=== PATIENT | female | born 1950 | race Caucasian/White ===

== ENCOUNTER → 2019-08-26 09:06 | Outpatient (CLI) | payer MEDICARE, OTHER, SELFPAY ==
--- NOTE | ~2019-08-26 | DEXA_ITS ---
Bone Density Report Name: Marah Steward Age: 68 Sex: Female Ethnicity: White Date of : 1950 Indication: osteopenia; height loss; prior fracture; postmenopausal Referring Provider: Dafne, Savana Garrido Study: Bone densitometry was performed. Exam Date: August 26, 2019 Accession number: [id number] Bone Density: Region BMD T-score Z-score Classification AP Spine (L1-L4) 0.845 -1.8 0.1 Osteopenia Femoral Neck (Left) 0.596 -2.3 -0.6 Osteopenia Total Hip (Left) 0.876 -0.5 0.8 Normal Femoral Neck (Right) 0.627 -2.0 -0.3 Osteopenia Total Hip (Right) 0.823 -1.0 0.4 Normal Total Hip Mean 0.850 -0.8 0.6 Normal World Health Organization criteria for BMD impression classify patients as: Normal (T-score at or above -1.0), Osteopenia (T-score between -1.0 and -2.5), or Osteoporosis (T-score at or below -2.5). 10-year Fracture Risk(1): Major Osteoporotic Fracture 19% Hip Fracture 3.9% Reported Risk Factors: [place] (), Neck BMD=0.596, BMI=23.4, previous fracture (1) FRAX(R) Version 3.08. Fracture probability calculated for an untreated patient. Fracture probability may be lower if the patient has received treatment. Previous Exams: Region Exam Age BMD T-score BMD Change BMD Change Date g/cm2 vs Baseline vs Previous AP Spine(L1-L4) 08/26/2019 68 0.845 -1.8 -0.088* -0.063* 07/31/2009 58 0.908 -1.3 -0.025* -0.025* 06/30/2006 55 0.933 -1.0 Total Hip(Left) 08/26/2019 68 0.876 -0.5 -0.066* 0.005 07/31/2009 58 0.871 -0.6 -0.071* -0.071* 06/30/2006 55 0.942 0.0 Total Hip(Right) 08/26/2019 68 0.823 -1.0 -0.048* -0.028* 07/31/2009 58 0.851 -0.7 -0.019 -0.019 06/30/2006 55 0.870 -0.6 *Denotes significance at 95% confidence level, LSC for AP Spine = 0.022 g/cm2, LSC for Total Hip = 0.027 g/cm2 Clinical Information Provided by Patient: Has had a low trauma fracture Has used the following medications: Vitamin D, Calcium Patient maximum height was 70.5 Menopause Age: 44 Drinks caffeinated beverages Onset of menses at age 13 Number of children 2 Impression: The patient has low bone mass, based on the Left Femoral Neck T-score. The patient has an estimated ten-year risk of hip fracture of 3.9% and an estimated ten-year risk of major fracture of 19%, based on the WHO FRAX algorithm. The patient has risk
== END ==
PROVIDERS: Visit Provider Nurse Practitioner Obstetrics & Gynecology
DX: M85.89 Other specified disorders of bone density and structure, multiple sites (principal)
CPT/HCPCS: 77080

== ENCOUNTER 2020-08-06 12:42 | Outpatient (CLI) | payer MEDICARE, OTHER, SELFPAY ==
--- NOTE | ~2020-08-06 | XR_ITS ---
EXAMINATION: XR lg joint inject/asp w image EXAM DATE: 08/06/2020 14:03 INDICATION: M16.11 - Unilateral primary osteoarthritis, right hip. TECHNIQUE: A time-out was performed to verify the patient's name, date of , and procedure to b e performed. The procedure including the risks, benefits and alternatives were discussed with the pat ient. Risks discussed included bleeding and infection. The patient understood the risks and agreed to proceed. The skin overlying the right hip joint was prepped and draped in usual sterile fashion. A nesthetic was administered with 2 milliliters 1% lidocaine subcutaneously. A 22 G needle was advance d under fluoroscopic guidance into the joint. Total of 2 mL of Omnipaque 240 confirmed intra-articu lar position of the needle. Subsequently, injectate consisting of 5 mL 1% lidocaine, 2 mL Kenalog 10 was instilled. The needle was removed and the entry site was cleaned and dressed. There were no i mmediate complications. The DAP for this procedure was 0.04 Gycm2. The procedure was performed on . FINDINGS: Real-time fluoroscopy demonstrates the needle and contrast in the right hip joint. IMPRESSION: Successful right hip joint injection. Reviewed, dictated and finalized at location B. 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
== END 2020-08-06 12:43 | disposition home or self-care (01) ==
PROVIDERS: PCP Internal Medicine; Visit Provider Orthopaedic Surgery
DX: M16.11 Unilateral primary osteoarthritis, right hip (principal)
CPT/HCPCS: 20610; 77002; J3301; Q9966

== ENCOUNTER 2021-03-18 15:42 | Outpatient (CLI) | payer MEDICARE, OTHER, SELFPAY ==
--- NOTE | ~2021-03-18 | MM_ITS ---
EXAMINATION: MM screening tanisha BI w chandler HISTORY: Screening TECHNIQUE: Craniocaudal and mediolateral oblique 3-D tomosynthesis images were obtained and synthetic 2-D images were generated. CAD analysis was submitted and interpreted. COMPARISON: Comparison to multiple prior studies sequentially, with oldest reviewed study dated 11/19. BREAST PARENCHYMAL COMPOSITION: The breasts are heterogenously dense, which may obscure small masses. FINDINGS: There is no evidence of suspicious mass, calcification, or architectural distortion to sugg est malignancy in either breast. There has been no suspicious interval change. IMPRESSION: 1. No mammographic evidence of malignancy. 2. Recommend routine screening mammography in one year. BI-RADS Category 1: Negative Reviewed, dictated and finalized at location A.
== END 2021-03-18 15:43 | disposition home or self-care (01) ==
LOC: ANHIMG 15:46
PROVIDERS: PCP Internal Medicine; Visit Provider Nurse Practitioner Obstetrics & Gynecology
DX: Z12.31 Encounter for screening mammogram for malignant neoplasm of breast (principal)
CPT/HCPCS: 77063; 77067

== ENCOUNTER 2022-04-20 08:10 | Outpatient (CLI) | payer MEDICARE, OTHER, SELFPAY ==
--- NOTE | ~2022-04-20 | MR_ITS ---
EXAMINATION: 1. MR brain/brain stem wo/w con 2. MR orbits face neck wo/w con DATE: 04/20/2022 09:34 INDICATION: Other complicated headache syndrome. Right-sided tinnitus. TECHNIQUE: Magnetic resonance imaging (MRI) of the brain and brainstem and orbits was performed witho ut and with 14 mL MultiHance intravenous contrast. COMPARISON: None. FINDINGS: MRI BRAIN: There is no intracranial hemorrhage, acute infarction, or abnormal intracranial mass lesio n. The ventricles are normal in size. The internal auditory canals and inner and middle ears are norm al. The mastoid air cells are normal. The paranasal sinuses are clear. MRI ORBITS: The optic nerves, optic chiasm, and extraocular muscles are normal. There is no abnormal mass. There are likely changes of ocular lens replacement surgeries. IMPRESSION: 1. Normal brain. 2. Normal orbits. Reviewed, dictated and finalized at location B. IMPRESSION: 1. Normal brain. 2. Normal orbits.
== END 2022-04-20 08:11 | disposition home or self-care (01) ==
PROVIDERS: PCP Internal Medicine
DX: G44.59 Other complicated headache syndrome (principal)
CPT/HCPCS: 70543; 70553; A9577

== ENCOUNTER 2022-08-11 14:54 | Outpatient (CLI) | payer MEDICARE, OTHER, SELFPAY ==
--- NOTE | ~2022-08-11 | XR_ITS ---
EXAMINATION: XR abdomen/kub 1V INDICATION: Diarrhea, unspecified TECHNIQUE: Supine views of the abdomen were obtained on 2 radiographs. COMPARISON: None FINDINGS: A moderate volume of colonic stool is present. No dilated loops of bowel are evident. The b owel gas pattern is normal. There is mild lumbar spondylosis. Osteoarthritis is noted in the hips. IMPRESSION: 1. Moderate volume of colonic stool. Reviewed, dictated and finalized at location L. 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
== END 2022-08-11 14:55 | disposition home or self-care (01) ==
PROVIDERS: PCP Internal Medicine; Visit Provider Nurse Practitioner Family
DX: R19.7 Diarrhea, unspecified (principal); M54.50 Low back pain, unspecified
CPT/HCPCS: 74018

== ENCOUNTER 2022-10-14 08:35 | Emergency (ER) | payer MEDICARE, OTHER, SELFPAY ==
--- NOTE | ~2022-10-14 | XR_ITS ---
Left Shoulder Technique: AP and scapular Y views were obtained. Clinical History: Pain Findings: No fracture or dislocation is seen. Osseous alignment is anatomic. The glenohumeral and acr omioclavicular joint spaces are preserved. Soft tissues are unremarkable. Impression: Unremarkable left shoulder radiographs. Reviewed, dictated and finalized at [facility]. Impression: Unremarkable left shoulder radiographs.
--- NOTE | ~2022-10-14 | XR_ITS ---
Clinical Indication: Chest pain PA and lateral views of the chest: Comparison: None Findings: The lungs are clear, without evidence of focal consolidation or pleural effusion. Cardiome diastinal silhouette is within normal limits. Bones and soft tissues are unremarkable. Impression: Normal chest. Reviewed, dictated and finalized at location . Impression: Normal chest.
--- NOTE | 2022-10-14 08:37 | ECG_ITS ---
Measurements Intervals [place] Rate: 83 P: 79 DC: 167 QRS: 81 QRSD: 102 T: 62 QT: 387 QTc: 455 Interpretive Statements SINUS RHYTHM BASELINE ARTIFACT ANTEROSEPTAL MYOCARDIAL INFARCTION , PROBABLY OLD ABNORMAL ECG NO PREVIOUS ECG AVAILABLE FOR COMPARISON Electronically Signed On 10-14-2022 16:46:04 CDT by Joshua Rome M.D.
[2022-10-14 08:45] VITALS: BP 134/64; PULSE 72; RESP 12; TEMP 36.5; O2SAT 98
[2022-10-14] MEDS: ASPIRIN 81 MG CHEWABLE TABLET 324 MG PO (09:03)
[2022-10-14 09:04] LABS: Basophils Percent Auto 0.7 % (0.2-1.2); Eosinophils Absolute Auto 0.2 K/mm3 (0-0.3); Eosinophils Percent Auto 3.3 % (0-4.4); Hematocrit 42.3 % (37.0-47.0); Hemoglobin 13.8 g/dL (12.0-15.0); Immature Granulocyte Absolute 0.01 K/mm3 (0.00-0.031); Immature Granulocyte Percent A 0.2 % (0-0.5); Lymphocytes Absolute Auto 2.29 K/mm3 (0.9-3.2); Lymphocytes Percent Auto 40.3 % (18.3-44.2); Mean Corpuscular HGB Conc 32.6 g/dl (32-36); Mean Corpuscular Hemoglobin 29.2 pg (26-34); Mean Corpuscular Volume 89.6 fl (80-100); Mean Platelet Volume 9.7 fl (7.4-10.4); Monocytes Absolute Auto 0.6 K/mm3 (0.1-0.6); Monocytes Percent Auto 9.7 % (2.6-8.5); Neutrophils Absolute Auto 2.6 K/mm3 (1.3-6.7); Neutrophils Percent Auto 45.8 % (45.5-73.1); Platelet Count Result 307 k/mm3 (150-375); Red Blood Count 4.72 M/mm3 (4.2-5.4); Red Cell Distribution Width 13.8 % (11.5-14.5); White Blood Count 5.7 K/mm3 (4.5-10.0)
[2022-10-14] MEDS: ONDANSETRON INJ 4 MG/2 ML VIAL IV PUSH (09:09)
[2022-10-14] MEDS: HYDROmorphone HCL INJ (*CRX) 1 MG/ML SYR 0.5 MG IV PUSH (09:10)
[2022-10-14 09:12] VITALS: BP 112/69; PULSE 78; RESP 14; O2SAT 99
[2022-10-14 09:17] LABS: Alanine Aminotransferase 20 U/L (6-35); Albumin Level 4.3 g/dL (3.5-5.1); Alkaline Phosphatase 70 U/L (38-126); Anion Gap 8 mmol/L (8-16); Aspartate Amino Transferase 29 U/L (14-36); Bilirubin,Total 0.6 mg/dL (0.2-1.3); Blood Urea Nitrogen 15 mg/dL (7-17); Carbon Dioxide 25 mmol/L (22-30); Chloride 107 mmol/L (98-107); Estimated CRCL calculation 79 ml/min; Estimated Glomerular Filt Rate > 60; Glucose 127 mg/dL (65-110); Lipase 96 U/L (23-300); Potassium 4.2 mmol/L (3.4-5.0); Sodium 140 mmol/L (137-145)
[2022-10-14 09:20] LABS: Prothrombin Time 12.7 Seconds (11.1-14.7)
[2022-10-14 09:22] LABS: Partial Thromboplastin Time 27.6 SECONDS (22.3-36.8)
--- NOTE | 2022-10-14 09:24 | ED.UPPEXIN ---
HPI - Extremity Injury (Upper) General Chief Complaint: Extremity Injury, Upper Stated Complaint: left shoulder pain Time Seen by Provider: 10/14/22 09:03 Source: patient and family Mode of arrival: ambulatory Limitations: no limitations History of Present Illness HPI narrative: 72 years old white female came with severe sharp pain left shoulder blade with shooting pain down to the left upper extremity. Worse with any movement, better if she does not move. Patient reports that the pain started getting gradually worse over the last 3 to 4 days, patient been working at the [employer] over the last 7 days which is unusual. 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 She denies any fever, chills, nausea, vomiting, shortness of breath, chest pain. Patient had similar symptoms in the past and been to chiropractor with some improvement. History of peptic ulcer disease, does not smoke or drink, does not take any medicine for diabetes, hypertension, hyperlipidemia. Does not smoke or drink. Related Data Home Medications Medication Instructions Recorded Confirmed multivitamin (Multiple Vitamins 1 tablet PO DAILY 08/04/20 10/11/22 tablet) aspirin 81 mg tablet,delayed 81 mg PO DAILY 03/02/21 10/11/22 release (Adult Low Dose Aspirin) meclizine 25 mg tablet 25 mg PO BID PRN 06/02/22 10/11/22 Allergies Allergy/AdvReac Type Severity Reaction Status Date / Time No Known Allergies Allergy Unknown Unknown Uncoded 10/14/22 09:00 Review of Systems Review of Systems: All systems reviewed & are unremarkable except as noted in HPI and below PMFSH Past Medical History Medical History BMI 23.0-23.9, adult GERD (gastroesophageal reflux disease) Osteoarthritis of right hip Osteopenia Ulcer Surgical History Surgical History H/O tubal ligation H/O wrist surgery broken wrist, surgery august 2012, Dr. Wasserman Hx of tonsillectomy Family History Family History Mother Breast cancer Sibling Breast cancer Other Cancer Diabetes mellitus Heart disease Social History Social History Smoking status: Never smoker Alcohol intake: never Substance use: never Substance use type: does not use Lack of Transportation: No Lack of Food: Never True Current Housing: I Have Housing Concerned About Future Housing: No Difficulty Paying Gas/Electric Bills: No Difficulty Paying for Meds: No Currently Unemployed: No Education: Associate Degree Difficulty w/ Childcare or Family Care: No Living arrangements: with family Occupation/Education: retired Additional occupation/education comments: her at [employer] Gender identity (if verbalized by the patient): Female Exam Narrative: General appearance: Well-developed, well-nourished Skin: Normal color Head: Normocephalic, nontraumatic Eyes: Clear conjunctiva ENT: Oropharynx normal, ears normal, nose normal Neck: Supple, nontender Chest and respiratory: Airway patent, no respiratory distress, no accessory muscle use Heart: Regular rate/rhythm Abdomen: Soft, nontender, no organomegaly, quiet bowel sounds Vascular: Normal peripheral pulses, normal capillary refill. Musculoskeletal: Severe diffuse tenderness left upper back, supraclavicular and left upper chest and shoulder with light palpation. 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
[2022-10-14 09:29] LABS: Troponin I < 0.012 ng/mL (0.000-0.034)
[2022-10-14 10:03] VITALS: BP 112/69; PULSE 61; RESP 16; O2SAT 97
[2022-10-14] MEDS: IBUPROFEN 600 MG TABLET PO (10:03)
[2022-10-14] MEDS: diazePAM (*CRX) 5 MG TABLET PO (10:03)
[2022-10-14 10:32] VITALS: BP 136/84; PULSE 68; RESP 16; O2SAT 98
== END 2022-10-14 10:33 | disposition home or self-care (01) ==
PROVIDERS: Emergency Provider Emergency Medicine; PCP Internal Medicine
DX: S46.002A Unspecified injury of muscle(s) and tendon(s) of the rotator cuff of left shoulder, initial encounter (principal); K21.9 Gastro-esophageal reflux disease without esophagitis; M16.11 Unilateral primary osteoarthritis, right hip; M85.80 Other specified disorders of bone density and structure, unspecified site; Z87.11 Personal history of peptic ulcer disease; Z79.82 Long term (current) use of aspirin; R94.31 Abnormal electrocardiogram [ECG] [EKG]; R07.9 Chest pain, unspecified; X50.9XXA Other and unspecified overexertion or strenuous movements or postures, initial encounter
CPT/HCPCS: 36415; 71046; 73030; 80053; 83690; 84484; 85025; 85610; 85730; 93005; 96374; 96375; 99284; A9270; J1170; J2405

== ENCOUNTER 2022-11-05 07:30 | Outpatient (CLI) | payer MEDICARE, OTHER, SELFPAY ==
--- NOTE | ~2022-11-05 | MR_ITS ---
EXAMINATION: MR cervical spine wo con DATE: 11/05/2022 08:09 INDICATION: C7 radiculopathy. Neck pain. TECHNIQUE: Magnetic resonance imaging (MRI) of the cervical spine was performed without intravenous c ontrast. Sequences included sagittal T2-weighted FSE, sagittal T2-weighted FS FSE, sagittal T1-weight ed FSE, axial MERGE, and axial T2-weighted FSE. COMPARISON: Cervical spine MRI 03/23/2009, radiographs 10/18/2022 FINDINGS: There is kyphosis of cervical spine. Vertebral body heights are normal. There is mildly dec reased disc height at C3-C4, severely decreased disc height at C4-C5, moderately decreased disc heigh t at C5-C6, and severely decreased disc height at C6-7 C7 with endplate remodeling. The spinal cord s ignal intensity is normal. The following disc levels are specifically discussed: C2-C3: The disc does not extend beyond the endplate margin. There is no uncovertebral joint osteoarth ritis. There is mild right and moderate left facet joint osteoarthritis. There is no neural foraminal stenosis. There is no central canal stenosis. C3-C4: The disc is bulging. There is mild right and moderate left uncovertebral joint osteoarthritis. There is moderate bilateral facet joint osteoarthritis. There is mild left neural foraminal stenosis . There is mild central canal stenosis. C4-C5: The disc is bulging. There is severe bilateral uncovertebral joint osteoarthritis. There is mi ld bilateral facet joint osteoarthritis. There is mild bilateral neural foraminal stenosis. There is mild central canal stenosis with ventral indentation of the spinal cord. C5-C6: The disc is bulging. There is moderate bilateral uncovertebral joint osteoarthritis. There is mild bilateral facet joint osteoarthritis. There is mild bilateral neural foraminal stenosis. There i s mild central canal stenosis. C6-C7: The disc is bulging. There is severe bilateral uncovertebral joint osteoarthritis. There is mo derate right and mild left facet joint osteoarthritis. There is mild bilateral neural foraminal steno sis. There is mild central canal stenosis. C7-T1: The disc is bulging. There is mild right and moderate left uncovertebral joint osteoarthritis. There is severe bilateral facet joint osteoarthritis. There is mild right and moderate left neural f oraminal stenosis. There is no central canal stenosis. IMPRESSION: 1. Severe cervical spondylosis, worsened from 03/23/2009. Reviewed, dictated and finalized at location A.
== END 2022-11-05 07:31 | disposition home or self-care (01) ==
LOC: ANHIMG 07:33
PROVIDERS: PCP Internal Medicine; Visit Provider Internal Medicine
DX: M47.22 Other spondylosis with radiculopathy, cervical region (principal)
CPT/HCPCS: 72141

== ENCOUNTER 2022-12-19 09:00 | Outpatient (RCR) | payer MEDICARE, OTHER, SELFPAY ==
--- NOTE | 2022-10-20 13:52 | PTOPEVAL1 ---
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; at home, is doing light tasks only; have had PT For her neck in the past--ultrasound, electrical stim have helped; daughter has a home stim unit and wants to know if she can use it--educated pt on pad placement Reported Pain Level Pain Score Self Report Additional Pain Score Comments pain range of 3-10/10 in neck--sharp, stabbing in shoulder blade,shoots to neck and down arm: L to posterior elbow; R arm without radicular pain; increase pain with moving and activity; decrease pain: take pain meds, CBD oil, rest, ice; with sleeping awaken due to pain 12x/night; tolerates light home tasks about 5-15 minutes, then have to rest; Assessment PT Clinical Summary Marah has the diagnosis of cervical radicular pain into L arm to elbow. She reports a chronic history of neck pain and went to ER due to L shoulder pain. 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 Self assessment functional score with Neck Disability Index score of 54% limitation. The xray reports moderate foraminal narrowing L > R mid to lower cervical spine. With the evaluation, she has decreased cervical rotation ROM to the L with pain increase, extension also painful; Active shoulder ROM is WNL and does not increase pain. There are muscle spasms throughout [id number] complex bilateral. Skilled PT services are indicated for modalities to decrease pain and spasms, therapeutic exercises to increase cervical ROM and education for home exercises. Plan of Care Interventions Hot Pack/Cold Pack,Manual Therapy,Neuro Re- ed
--- NOTE | 2022-11-24 09:53 | PTOPPROG ---
Assessment and note entered by May De La Vega, PT Evaluation Information Assessment Status Progress Diagnosis cervicalgia, radiculopathy Onset Jun 2022 Subjective Information Marah reports: was feeling better, did some painting yesterday and more pain today; have returned to working as [employer] for 7 days in a row and did OK; have been doing the home exercises and watching posture, position; feel like more therapy would be helpful to get better, since set back with just little more activity; pain range of 0-4/10; neck tight and posterior shoulder blade pain, but still have had the tingling in L arm to hand ALL the time, severity varies depend upon activity and motion; have slept through the night without awakeing, but due to increased activity, last night woke up 3x/ night; driving is OK; reported home activity about 1 hour before stop rest; decrease pain: ibuprofen PRN, have gone days without taking any; Assessment PT Clinical Summary Marah has received 11 PT sessions. Compared to the initial evaluation: pain rating has improved from 3-10/10 to 0-4/10; neck pain is less, but continues to have tingling/numbness into L fingers constantly--with increase in severity with activity; Self assessment Neck Index score improved from 54% to 38% limitation in activity; sleeping tolerance and reported activity tolerances have improved; cervical rotation L & extension has increased, but still painful; education for HEP, posture/position and pain control have been provided. She has a pain management consult next week. The goals were partially met. Continue PT treatment, to further decrease pain and increase strength, with progression of HEP. Plan of Care Interventions Electrical Stimulation,Hot Pack/Cold Pack,Manual Therapy,Neuro Re-education,Patient/Caregiver Education,Therapeutic Activities,Therapeutic Exercise,Ultrasound,Other Other Interventions taping, [facility] PT Services Indicated Yes Treatment Frequency and 2x/wk for 3 weeks Duration These treatments will
--- NOTE | 2022-12-19 09:34 | PTOPDC ---
Assessment and note entered by May De La Vega, PT Evaluation Information Assessment Status Discharge Diagnosis cervicalgia, radiculopathy Onset Jun 2022 Subjective Information Marah reports: doing better; back to doing everything, but painting and heavier tasks with redoing her daughter's home; Reported Pain Level Pain Score Self Report Additional Pain Score Comments pain range of 0-3/10 in the past week: numb and tingling feeling in L elbow- forearm and into 4 & 5th fingers; no pain in neck; increase pain when wake up in the AM--get up out of bed and stand, put pressure on her spine; decrease pain with stretching and heat; standing, walking and 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 Compared to the last reeval: pain rating about the same, continues to have tingling and radicular s/ s into her L hand, but less and she can move her arm to decrease it; Self assessment improved from 38% to 6% limitation in activity level; sleeping improved--not awakening due to pain, but issues with lying on her L side; no longer has pain with active cervical extension; strength of L shoulder flexion has improved, but abduction is about the same and causes her some pain increase with weighted abduction motion; Education completed for HEP and posture and pain management. The goals were partially met. Discharge PT; she is to continue with her home exercises and pain management control techniques, with activity moderation. Plan of Care PT Services Indicated No
== END 2022-12-19 12:57 | disposition home or self-care (01) ==
LOC: ANHPT 09:00
PROVIDERS: PCP Internal Medicine; Visit Provider Orthopaedic Surgery
DX: M47.812 Spondylosis without myelopathy or radiculopathy, cervical region (principal); M54.12 Radiculopathy, cervical region
CPT/HCPCS: 97014; 97035; 97110; 97140; 97161; 97530; G0283

== ENCOUNTER 2023-04-07 14:44 | Outpatient (CLI) | payer MEDICARE, SELFPAY ==
--- NOTE | ~2023-04-07 | XR_ITS ---
XR_CERV2-3V_CR DATE: 04/07/2023 15:06 INDICATION: Left sided neck pain TECHNIQUE: AP, open-mouth, odontoid and lateral views COMPARISON: 10/18/2022 cervical spine FINDINGS: Mild reversal cervical curvature. C1 and C2 are normally aligned and the odontoid process is intact. C2-3 interspace is well preserved. There is moderate loss of interspace height at C3-4. There is mode rately severe degenerative disc disease at C4-5, C5-6 and C6-7. Uncovertebral joint spurring is noted, apparently involving particularly the right C4-5 and the bilat eral C5 and C6 uncovertebral joints particularly. No fracture or dislocation or locked facet or prevertebral soft tissue swelling. IMPRESSION: Reversal cervical curvature Cervical spondylosis Little interval change since 10/18/2022 Reviewed, dictated and finalized at Location A. Reviewed, dictated and finalized at location B.
== END 2023-04-07 14:45 | disposition home or self-care (01) ==
LOC: ANHIMG 14:52
PROVIDERS: PCP Internal Medicine; Visit Provider Internal Medicine
DX: M54.2 Cervicalgia (principal); M53.82 Other specified dorsopathies, cervical region; M43.02 Spondylolysis, cervical region
CPT/HCPCS: 72040

== ENCOUNTER 2023-04-13 08:17 | Outpatient (CLI) | payer MEDICARE, SELFPAY ==
--- NOTE | ~2023-04-13 | MM_ITS ---
EXAMINATION: MM screening tanisha BI w chandler HISTORY: Screening mammogram, family history of breast cancer in her mother and sister. TECHNIQUE: Craniocaudal and mediolateral oblique 3-D tomosynthesis images were obtained and synthetic 2-D images were generated. CAD analysis was submitted and interpreted. COMPARISON: 03/18/2021, 04/30/2019 BREAST PARENCHYMAL COMPOSITION:The breasts are heterogeneously dense, which may obscure small masses. FINDINGS: No suspicious mass, calcification, or architectural distortion are identified in either umair ast to suggest malignancy. There has been no suspicious interval change. IMPRESSION: No mammographic evidence of malignancy. Recommend routine screening mammography in one year. BI-RADS Category 1: Negative Reviewed, dictated and finalized at location .
== END 2023-04-13 08:18 | disposition home or self-care (01) ==
PROVIDERS: PCP Internal Medicine; Visit Provider Obstetrics & Gynecology
DX: Z12.31 Encounter for screening mammogram for malignant neoplasm of breast (principal)
CPT/HCPCS: 77063; 77067

== ENCOUNTER 2023-07-01 13:38 | Outpatient (CLI) | payer MEDICARE, SELFPAY ==
--- NOTE | ~2023-07-01 | MR_ITS ---
EXAMINATION: MR cervical spine wo con DATE: 07/01/2023 14:14 INDICATION: Cervical radicular pain. TECHNIQUE: Magnetic resonance imaging (MRI) of the cervical spine was performed without intravenous c ontrast. COMPARISON: Cervical spine MRI 11/05/2022, radiographs 04/07/2023 FINDINGS: There is kyphosis of cervical spine. Vertebral body heights are normal. There is mildly dec reased disc height at C3-C4, severely decreased disc height at C4-C5, moderately decreased disc heigh t at C5-C6, and severely decreased disc height at C6-C7. The spinal cord signal intensity is normal. The following disc levels are specifically discussed: C2-C3: The disc does not extend beyond the endplate margin. There is no uncovertebral joint osteoarth ritis. There is severe bilateral facet joint osteoarthritis. There is mild left neural foraminal sten osis. There is no central canal stenosis. C3-C4: The disc does not extend beyond the endplate margin. There is mild right and moderate left unc overtebral joint osteoarthritis. There is moderate bilateral facet joint osteoarthritis. There is mil d left neural foraminal stenosis. There is no central canal stenosis. C4-C5: The disc is bulging. There is severe bilateral uncovertebral joint osteoarthritis. There is no facet joint osteoarthritis. There is mild bilateral neural foraminal stenosis. There is mild central canal stenosis. C5-C6: The disc is bulging. There is severe bilateral uncovertebral joint osteoarthritis. There is mi ld bilateral facet joint osteoarthritis. There is mild bilateral neural foraminal stenosis. There is mild central canal stenosis. C6-C7: The disc is bulging. There is severe bilateral uncovertebral joint osteoarthritis. There is mi ld bilateral facet joint osteoarthritis. There is mild bilateral neural foraminal stenosis. There is mild central canal stenosis. C7-T1: There is a central protrusion. There is mild right and moderate left uncovertebral joint osteo arthritis. There is severe bilateral facet joint osteoarthritis. There is moderate bilateral neural f oraminal stenosis. There is no central canal stenosis. IMPRESSION: 1. Severe cervical spondylosis. Reviewed, dictated and finalized at location A. 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
== END 2023-07-01 13:39 | disposition home or self-care (01) ==
PROVIDERS: PCP Internal Medicine; Visit Provider Pain Medicine Pain Medicine
DX: M47.22 Other spondylosis with radiculopathy, cervical region (principal)
CPT/HCPCS: 72141

== ENCOUNTER → 2023-08-07 08:39 | Outpatient (CLI) | payer MEDICARE, SELFPAY ==
--- NOTE | ~2023-08-07 | DEXA_ITS ---
Bone Density Report Name: FERNANDO LERMA Age: 72 Sex: Female Ethnicity: White Date of : 1950 Indication: osteopenia; parental hip fracture; height loss; prior fracture; postmenopausal Referring Provider: Lilliana Alston Study: Bone densitometry was performed. Exam Date: August 07, 2023 Accession number: [id number] Bone Density: Region BMD T-score Z-score Classification AP Spine (L1-L4) 0.817 -2.1 0.1 Osteopenia Femoral Neck (Left) 0.608 -2.2 -0.3 Osteopenia Total Hip (Left) 0.843 -0.8 0.8 Normal Femoral Neck (Right) 0.600 -2.2 -0.3 Osteopenia Total Hip (Right) 0.798 -1.2 0.4 Osteopenia Total Hip Mean 0.821 -1.0 0.6 Normal World Health Organization criteria for BMD impression classify patients as: Normal (T-score at or above -1.0), Osteopenia (T-score between -1.0 and -2.5), or Osteoporosis (T-score at or below -2.5). 10-year Fracture Risk(1): Major Osteoporotic Fracture 32% Hip Fracture 13% Reported Risk Factors: [place] (), Neck BMD=0.600, BMI=23.2, previous fracture, parental fracture (1) FRAX(R) Version 3.08. Fracture probability calculated for an untreated patient. Fracture probability may be lower if the patient has received treatment. Previous Exams: Region Exam Age BMD T-score BMD Change BMD Change Date g/cm2 vs Baseline vs Previous AP Spine(L1-L4) 08/07/2023 72 0.817 -2.1 -0.116* -0.029* 08/26/2019 68 0.845 -1.8 -0.088* -0.063* 07/31/2009 58 0.908 -1.3 -0.025* -0.025* 06/30/2006 55 0.933 -1.0 Total Hip(Left) 08/07/2023 72 0.843 -0.8 -0.099* -0.034* 08/26/2019 68 0.876 -0.5 -0.066* 0.005 07/31/2009 58 0.871 -0.6 -0.071* -0.071* 06/30/2006 55 0.942 0.0 Total Hip(Right) 08/07/2023 72 0.798 -1.2 -0.073* -0.025 08/26/2019 68 0.823 -1.0 -0.048* -0.028* 07/31/2009 58 0.851 -0.7 -0.019 -0.019 06/30/2006 55 0.870 -0.6 *Denotes significance at 95% confidence level, LSC for AP Spine = 0.022 g/cm2, LSC for Total Hip = 0.027 g/cm2 Clinical Information Provided by Patient: Has had a low trauma fracture Parent has had a hip fracture Has used the following medications: Vitamin D, Calcium Patient maximum height was 70.5 Menopause Age: 44 Does not regularly consume dairy products Drinks caffeinated beverages Onset of menses at age 13 Number of children 2
== END ==
PROVIDERS: PCP Internal Medicine; Visit Provider Obstetrics & Gynecology
DX: N95.1 Menopausal and female climacteric states (principal); M85.88 Other specified disorders of bone density and structure, other site; M85.852 Other specified disorders of bone density and structure, left thigh; M85.851 Other specified disorders of bone density and structure, right thigh
CPT/HCPCS: 77080

== ENCOUNTER 2024-05-01 11:16 | Outpatient (CLI) | payer MEDICARE, SELFPAY ==
--- NOTE | ~2024-05-01 | US_ITS ---
EXAMINATION: US venous doppler [facility] DATE: 05/01/2024 12:01 INDICATION: Left calf pain TECHNIQUE: Grayscale ultrasound images without and with compression and Doppler ultrasound images of the left lower extremity veins were obtained. COMPARISON: None. FINDINGS: The visualized portions of left common femoral vein, profunda (deep) femoral vein, femoral vein, popl iteal vein, peroneal veins, posterior tibial veins, gastrocnemius vein and greater saphenous vein out flow are patent. IMPRESSION: 1. No deep venous thrombosis in the left lower limb. Reviewed, dictated and finalized at location A.
== END 2024-05-01 11:17 | disposition home or self-care (01) ==
PROVIDERS: PCP Internal Medicine; Visit Provider Internal Medicine
DX: M79.662 Pain in left lower leg (principal)
CPT/HCPCS: 93971

== ENCOUNTER 2024-05-27 08:46 | Outpatient (CLI) | payer MEDICARE, SELFPAY ==
--- NOTE | 2024-05-27 10:06 | ECG_ITS ---
Test Date: 2024-05-27 10:12:41 Measurements Intervals [place] Rate: 52 P: 33 [place]: 149 QRS: 43 QRSD: 102 T: 47 QT: 450 QTc: 421 Interpretive Statements SINUS BRADYCARDIA CANNOT R/O SEPTAL INFARCT, AGE INDETERMINATE BASELINE ARTIFACT- I, II, III, AVR, AVL, AVF ABNORMAL ECG No previous ECG available for comparison Electronically Signed On 05-27-2024 10:43:17 [employer] by Maciej Morales D.O.
[2024-05-27 10:26] LABS: Basophils Absolute Auto 0.1 K/mm3 (0.0-0.1); Eosinophils Absolute Auto 0.1 K/mm3 (0-0.3); Eosinophils Percent Auto 2.3 % (0-4.4); Hematocrit 39.9 % (37.0-47.0); Hemoglobin 13.2 g/dL (12.0-15.0); Immature Granulocyte Absolute 0.01 K/mm3 (0.00-0.031); Immature Granulocyte Percent A 0.2 % (0-0.5); Lymphocytes Absolute Auto 1.91 K/mm3 (0.9-3.2); Lymphocytes Percent Auto 37.2 % (18.3-44.2); Mean Corpuscular HGB Conc 33.1 g/dl (32-36); Mean Corpuscular Hemoglobin 29.8 pg (26-34); Mean Corpuscular Volume 90.1 fl (80-100); Mean Platelet Volume 9.2 fl (7.4-10.4); Monocytes Absolute Auto 0.7 K/mm3 (0.1-0.6); Monocytes Percent Auto 13.6 % (2.6-8.5); Neutrophils Absolute Auto 2.4 K/mm3 (1.3-6.7); Neutrophils Percent Auto 45.7 % (45.5-73.1); Platelet Count Result 281 k/mm3 (150-375); Red Blood Count 4.43 M/mm3 (4.2-5.4); Red Cell Distribution Width 13.4 % (11.5-14.5); White Blood Count 5.1 K/mm3 (4.5-10.0)
[2024-05-27 10:36] LABS: Prothrombin Time 13.3 Seconds (11.1-14.7)
[2024-05-27 10:37] LABS: Alanine Aminotransferase 15 U/L (6-35); Albumin Level 4.2 g/dL (3.5-5.1); Alkaline Phosphatase 61 U/L (38-126); Anion Gap 3 mmol/L (4-12); Aspartate Amino Transferase 28 U/L (14-36); Bilirubin,Total 0.5 mg/dL (0.2-1.3); Blood Urea Nitrogen 10 mg/dL (7-17); Calcium 9.1 mg/dL (8.4-10.2); Carbon Dioxide 30 mmol/L (22-30); Chloride 103 mmol/L (98-107); Estimated Glomerular Filt Rate > 60; Glucose 88 mg/dL (65-110); Partial Thromboplastin Time 27.4 Seconds (22.3-36.8); Potassium 4.6 mmol/L (3.4-5.0); Sodium 136 mmol/L (137-145)
== END 2024-05-27 08:47 | disposition home or self-care (01) ==
PROVIDERS: PCP Internal Medicine; Visit Provider Urology
DX: Z01.818 Encounter for other preprocedural examination (principal); R00.1 Bradycardia, unspecified; R94.31 Abnormal electrocardiogram [ECG] [EKG]
CPT/HCPCS: 36415; 80053; 85025; 85610; 85730; 86850; 86900; 86901; 93005

== ENCOUNTER 2024-06-03 00:06 | Day surgery (SDC) | payer MEDICARE, SELFPAY ==
--- NOTE | 2024-05-27 08:51 | PC.NURSE ---
Report to the Outpatient Waiting Room, entrance under the green pavilion located off [facility], at time 6 AM on date _06/03/24 . Planned Procedure Time: __7:30 AM .? Time changes happen often and if your time is changed the preop area will call you the afternoon before. - You and your visitor will be asked to self-screen and do not enter if you have any COVID symptoms. Please call surgeon if you need to reschedule. - A mask is optional within the hospital at this time. Patients may have clear liquids (water, carbonated beverages, clear teas, apple juice) until 3 hours prior to surgery( 4:30 AM) with a maximum of 20 ounces. - No food from midnight until time of surgery and no smoking. This includes no chewing gum, candy or mints. - Infants may have breast milk until 4 hours before surgery, formula 6 hours prior to surgery. - Children will be allowed to drink immediately following surgery.? If applicable, please bring a bottle or sippy cup to assist with drinking. Juice, water, soda, and popsicles are readily available.? For infants on formula, please bring formula the day of surgery.? Pacifiers are allowed. Take only the following medications with a SIP of water on the morning of surgery: __NONE DO NOT STOP ANY OF YOUR OTHER PRESCRIPTION MEDICATIONS PRIOR TO SURGERY EXCEPT THE FOLLOWING Medications to discontinue per physician ____ASPIRIN PER DR THOMAS. HOLD ALL VITAMINS AND SUPPLEMENTS 3 DAYS PRE OP Date to take last dose___05/30/24 Please no make-up, nail slovenian, hairspray, perfume, deodorant, or body powder the day of surgery.? No jewelry (including any body piercings) or valuables the day of surgery, leave them at home.? Please take a shower or bath the night before, or the morning of, surgery with an antibacterial soap.? Wear comfortable, loose fitting clothing.? Children are encouraged to wear pajamas. - Jewelry must be removed prior to entering the operating room.? Rings and piercings that are not removed may be cut off. - The hospital will not accept responsibility for valuables.? - Please leave all valuables, including medications, at home the day of surgery. If you are going home after surgery, a licensed ross carrier driver must drive you home.? - NO public transportation without another adult if you receive anesthesia. - We recommend that an adult stay with you for 24 hours following discharge. - We also recommend that you do not drive, make important decision, drink alcoholic beverages, or take any drugs that were not prescribed by your health care provider for at least 24 hours after your discharge time. Follow any additional instructions given to you from your surgeon. VERBAL AND WRITTEN instructions given to __PATIENT and asked if any additional questions and then verbalized understanding. Patient advised to call surgeon office or pre surgery nurse liaison [phone] if any additional questions.
[2024-05-27 08:58] VITALS: BMI 22.8
[2024-05-27 09:52] VITALS: BP 138/78; PULSE 73; RESP 18; TEMP 36.7; O2SAT 100
--- NOTE | 2024-05-31 11:05 | PM.IMHP ---
H&P: HPI History of Present Illness Date/Time: 05/31/24 11:05 Chief Complaint: Prolapse, stress incontinence Narrative: she has a history of pelvic organ prolapse. She presents for surgical intervention. She is occult stress incontinence noted on urodynamics Review of Systems Review of Systems: All systems reviewed & are unremarkable except as noted in HPI and below PMFSH Past Medical History Medical History BMI 23.0-23.9, adult Bulging disc Cervical spine arthritis GERD (gastroesophageal reflux disease) Osteoarthritis of right hip Osteopenia Ulcer Surgical History Surgical History H/O tubal ligation H/O wrist surgery broken wrist, surgery august 2012, Dr. Wasserman Hx of tonsillectomy Family History Family History Mother Breast cancer Sibling Breast cancer Other Cancer Diabetes mellitus Heart disease Social History Social History Smoking status: Never smoker Alcohol intake: never Substance use: never Substance use type: does not use Lack of Transportation: No Lack of Food: Never True Current Housing: I Have Housing Concerned About Future Housing: No Difficulty Paying Gas/Electric Bills: No Difficulty Paying for Meds: No Currently Unemployed: No Education: Associate Degree Difficulty w/ Childcare or Family Care: No Living arrangements: with family Occupation/Education: retired 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 [employer] Gender identity (if verbalized by the patient): Female Spiritual care concerns: No Meds Home Medications and Allergies Home Medications Medication Instructions Recorded Confirmed Type aspirin 81 mg tablet,delayed 81 mg PO DAILY 03/02/21 05/27/24 History release (Adult Low Dose Aspirin) pantoprazole 20 mg tablet,delayed See Rx Instructions .Route 08/11/23 05/27/24 Rx release .COMPLEX #180 tabs Lactobacillus 1 cap PO DAILY 05/27/24 05/27/24 History acidophilus-Bifidobac.animalis 2.5 billion cell capsule (Daily Probiotic) ascorbic acid (vitamin C) 1,000 mg 1 g PO DAILY 05/27/24 05/27/24 History tablet biotin 10,000 mcg capsule 10,000 mcg PO DAILY 05/27/24 05/27/24 History bromelains 375 mg capsule 375 mg PO DAILY 05/27/24 05/27/24 History fiber 2 tablet PO BID 05/27/24 05/27/24 History zectfqpcnih-heqcevxkm-ucrt688-hyal 2 tablet PO BID 05/27/24 05/27/24 History 750 mg-100 mg-125 mg-1.65 mg tablet grape seed extract 100 mg capsule 200 mg PO DAILY 05/27/24 05/27/24 History magnesium 500 mg tablet 15 mg PO DAILY 05/27/24 05/27/24 History melatonin 1 mg tablet 2 mg PO HS PRN Insomnia 05/27/24 05/27/24 History minocycline 50 mg capsule 50 mg PO HS CLEAR UP BILAT EYE 05/27/24 05/27/24 History INFECT omega-3 fatty acids-fish oil 684 1 cap PO DAILY 05/27/24 05/27/24 History mg-1,200 mg capsule,delayed release potassium 99 mg tablet 99 mg PO DAILY 05/27/24 05/27/24 History Allergies Allergy/AdvReac Type Severity Reaction Status Date / Time No Known Allergies Allergy Verified 05/27/24 08:58 Exam Narrative: urethral mobility noted anterior wall +3 apex +1 Assessment and Plan Assessment and plan (1) Uterine prolapse: Code(s): N81.4 - Uterovaginal prolapse, unspecified Status: Acute (2) PRISCILA (stress urinary incontinence, female): Code(s): N39.3 - Stress incontinence (female) (male) Status: Acute Plan plan for robotic colpopexy and urethral sling. Understands risks of bleeding, infection, diskitis, damage surrounding organs, damage to the urinary tract, vaginal mesh extrusion, urinary tract mesh erosion, obstructive voiding requiring secondary procedure, hip and leg pain, recurrent or persistent stress incontinence or prolapse, dyspareunia. She agrees to proceed
[2024-06-03] VITALS (14 sets, daily range): BP systolic 107–165; BP diastolic 53–142; PULSE 66–88; RESP 10–22; TEMP 36.1–36.4; O2SAT 92–100
[2024-06-03] MEDS: LACTATED RINGERS 1,000 ML 30 ML IV CONT ×2 (06:30→10:11)
--- NOTE | 2024-06-03 06:48 | P.PNAN_ITS ---
Anes - Initial Pre Proc Eval Procedure: Operation Date: 06/03/24 07:30 Proposed Procedures p Robotic Sacrocolpopexy - Merrick Torres MD s Urethral Sling - Merrick Torres MD s Robotic Assisted Laparoscopic Supracervical Hysterectomy With Bilateral Salpingo-oophorectomy - Derek Alston MD Date/Time: 06/03/24 06:48 Surgeon: Merrick Torres MD Pre Op Diagnosis: Midline Cystocele, Prolapse Patient Data Age: 73 Gender: F Height: 1.78 m Weight: 70.2 kg Last Vital Signs Temp 36.7 C 05/27/24 09:52 Pulse 73 05/27/24 09:52 Resp 18 05/27/24 09:52 BP 138/78 05/27/24 09:52 Pulse Ox 100 05/27/24 09:52 O2 Del Method Room Air 05/27/24 09:52 Allergies Allergy/AdvReac Type Severity Reaction Status Date / Time No Known Allergies Allergy Verified 05/27/24 08:58 Home Medications Medication Instructions Recorded Confirmed Type aspirin 81 mg tablet,delayed 81 mg PO DAILY 03/02/21 05/27/24 History release (Adult Low Dose Aspirin) pantoprazole 20 mg tablet,delayed See Rx Instructions .Route 08/11/23 05/27/24 Rx release .COMPLEX #180 tabs Lactobacillus 1 cap PO DAILY 05/27/24 05/27/24 History acidophilus-Bifidobac.animalis 2.5 billion cell capsule (Daily Probiotic) ascorbic acid (vitamin C) 1,000 mg 1 g PO DAILY 05/27/24 05/27/24 History tablet biotin 10,000 mcg capsule 10,000 mcg PO DAILY 05/27/24 05/27/24 History bromelains 375 mg capsule 375 mg PO DAILY 05/27/24 05/27/24 History fiber 2 tablet PO BID 05/27/24 05/27/24 History amtjiudnmmy-lomjmjcyh-ezsb920-hyal 2 tablet PO BID 05/27/24 05/27/24 History 750 mg-100 mg-125 mg-1.65 mg tablet grape seed extract 100 mg capsule 200 mg PO DAILY 05/27/24 05/27/24 History magnesium 500 mg tablet 15 mg PO DAILY 05/27/24 05/27/24 History melatonin 1 mg tablet 2 mg PO HS PRN Insomnia 05/27/24 05/27/24 History minocycline 50 mg capsule 50 mg PO HS CLEAR UP BILAT EYE 05/27/24 05/27/24 History INFECT omega-3 fatty acids-fish oil 684 1 cap PO DAILY 05/27/24 05/27/24 History mg-1,200 mg capsule,delayed release potassium 99 mg tablet 99 mg PO DAILY 05/27/24 05/27/24 History Patient hx anesthesia problems: none Family hx anesthesia problems: none Results Review: All pre-operative results and documents have been reviewed as part of the pre- operative evaluation. [facility] Past Medical History Medical History BMI 23.0-23.9, adult Bulging disc Cervical spine arthritis GERD (gastroesophageal reflux disease) Osteoarthritis of right hip Osteopenia Ulcer Surgical History Surgical History H/O tubal ligation H/O wrist surgery broken wrist, surgery august 2012, Dr. Wasserman Hx of tonsillectomy Family History Family History Mother Breast cancer Sibling Breast cancer Other Cancer Diabetes mellitus Heart disease Social History Social History Smoking status: Never smoker Alcohol intake: never Substance use: never Substance use type: does not use Lack of Transportation: No Lack of Food: Never True Current Housing: I Have Housing Concerned About Future Housing: No Difficulty Paying Gas/Electric Bills: No Difficulty Paying for Meds: No Currently Unemployed: No Education: Associate Degree Difficulty w/ Childcare or Family Care: No Living arrangements: with family Occupation/Education: retired 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 [employer] Gender identity (if verbalized by the patient): Female Spiritual care concerns: No Anes - Eval Final PreProcedure Day of Procedure 06/03/24 06:48 Patient weight: normal Heart: regular rate and rhythm Lungs: clear to auscultation Airway: Mallampati scale class II Neurological: alert and oriented Last oral intake: >/= 8 hours ASA classification: III Emergent: no Anesthetic plan: proceed Anesthesia type and monitoring: general ETT and standard monitoring Results Review: All pre-operative results and documents have been reviewed as part of the pre- operative evaluation. Informed Consent: The patient's anesthetic plan and its attendant risks and benefits were discussed with the patient/family/POA. Questions were solicited and answers provided to the satisfaction of the patient/family/POA.
--- NOTE | 2024-06-03 07:08 | WPDHPUPDATE1 ---
History and Physical Update Update Date/Time: 06/03/24 07:08 History and Physical has been reviewed, including an updated exam of the patient. There are NO changes in the patient's condition. Risks, benefits, and alternatives have been discussed and questions answered. Patient agrees to proceed with procedure.
--- NOTE | 2024-06-03 07:22 | P.HP_ITS ---
H&P: HPI History of Present Illness Date/Time: 06/03/24 07:22 Chief Complaint: pelvic organ Prolapse Narrative: this patient is a 73-year-old female with pelvic organ prolapse. She has agreed to proceed with robotic assisted supracervical hysterectomy with bilateral salpingo-oophorectomy. this will be done in conjunction with sacral colpopexy The patient understands the details of the procedure. The procedure has been explained in detail. She understands the risks. She understands that injuries may occur that result in hospitalization, more surgery, and severe illness. She understands risk of hemorrhage and infection. She denies any chest pain or shortness of breath. She denies any nausea, vomiting, fever, chills. Review of Systems Review of Systems: All systems reviewed & are unremarkable except as noted in HPI and below Constitutional: Constitutional: Denies chills, Denies fatigue, Denies fever(s) and Denies weakness Eyes: Eyes: Denies blurry vision, Denies change in vision, Denies loss of peripheral vision, Denies loss of vision, Denies other visual disturbances and Denies eye pain ENT: Denies vertigo, Denies dizziness, Denies hearing loss, Denies mouth pain, Denies nasal obstruction, Denies neck mass and Denies neck pain Cardiovascular: Cardiovascular: Denies chest pain, Denies diaphoresis, Denies syncope, Denies leg edema and Denies dyspnea Respiratory: Respiratory: Denies chest congestion, Denies cough, Denies hemoptysis, Denies dyspnea and Denies wheezing Gastrointestinal: Gastrointestinal: Denies abdominal pain, Denies constipation, Denies diarrhea, Denies nausea and Denies vomiting Genitourinary: Genitourinary: Denies hematuria, Denies change in libido, Denies nocturia, Denies genital lesions, Denies flank pain and Denies urinary urgency Musculoskeletal: Musculoskeletal: Denies abnormal gait, Denies back pain, Denies myalgias, Denies arthralgias, Denies joint swelling, Denies muscle weakness and Denies neck pain Integumentary/Breasts: Skin/Breast: Denies swelling, Denies breast pain, Denies breast mass, Denies dry skin, Denies nipple discharge, Denies unusual bruising and Denies jaundice Neurologic: Denies Neuro-related abnormal movements, Denies Abnormal speech present, Denies abnormal gait, Denies behavioral changes, Denies confusion, Denies vertigo, Denies dizziness, Denies syncope, Denies loss of vision, Denies memory loss, Denies convulsions and Denies weakness Psychiatric: Psychiatric: Denies abnormal sleep pattern, Denies behavioral changes, Denies change in libido, Denies confusion, Denies depression, Denies anhedonia and Denies memory loss Endocrine: Endocrine: Reports no additional endocrine complaints, Denies change in libido and Denies fatigue Hematologic/Lymphatic: Hematologic/Lymphatic: Reports no additional hematologic/lymphatic complaints Allergic/Immunologic: Allergic/Immunologic: Reports no additional allergic/immunologic complaints and Denies wheezing PMFSH Past Medical History Medical History BMI 23.0-23.9, adult Bulging disc Cervical spine arthritis GERD (gastroesophageal reflux disease) Osteoarthritis of right hip Osteopenia Ulcer Surgical History Surgical History H/O tubal ligation H/O wrist surgery broken wrist, surgery august 2012, Dr. Wasserman Hx of tonsillectomy Family History Family History Mother Breast cancer Sibling Breast cancer Other Cancer Diabetes mellitus Heart disease Social History Social History Smoking status: Never smoker Alcohol intake: never Substance use: never Substance use type: does not use Lack of Transportation: No Lack of Food: Never True Current Housing: I Have Housing Concerned About Future Housing: No Difficulty Paying Gas/Electric Bills: No Difficulty Paying for Meds: No Currently Unemployed: No Education: Associate Degree Difficulty w/ Childcare or Family Care: No Living arrangements: with family Occupation/Education: retired 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 [employer] Gender identity (if verbalized by the patient): Female Spiritual care concerns: No Meds Home Medications and Allergies Home Medications Medication Instructions Recorded Confirmed Type aspirin 81 mg tablet,delayed 81 mg PO DAILY 03/02/21 06/03/24 History release (Adult Low Dose Aspirin) pantoprazole 20 mg tablet,delayed See Rx Instructions .Route 08/11/23 05/27/24 R x release .COMPLEX #180 tabs Lactobacillus 1 cap PO DAILY 05/27/24 06/03/24 History acidophilus-Bifidobac.animalis 2.5 billion cell capsule (Daily Probiotic) ascorbic acid (vitamin C) 1,000 mg 1 g PO DAILY 05/27/24 06/03/24 History tablet biotin 10,000 mcg capsule 10,000 mcg PO DAILY 05/27/24 06/03/24 History bromelains 375 mg capsule 375 mg PO DAILY 05/27/24 06/03/24 History fiber 2 tablet PO BID 05/27/24 06/03/24 History dksjtoqyqqe-uzwutlklm-qscl891-hyal 2 tablet PO BID 05/27/24 06/03/24 History 750 mg-100 mg-125 mg-1.65 mg tablet grape seed extract 100 mg capsule 200 mg PO DAILY 05/27/24 06/03/24 History magnesium 500 mg tablet 15 mg PO DAILY 05/27/24 05/27/24 History melatonin 1 mg tablet 2 mg PO HS PRN Insomnia 05/27/24 05/27/24 History minocycline 50 mg capsule 50 mg PO HS CLEAR UP BILAT EYE 05/27/24 05/27/24 History INFECT omega-3 fatty acids-fish oil 684 1 cap PO DAILY 05/27/24 05/27/24 History mg-1,200 mg capsule,delayed release potassium 99 mg tablet 99 mg PO DAILY 05/27/24 05/27/24 History Allergies Allergy/AdvReac Type Severity Reaction Status Date / Time No Known Allergies Allergy Verified 05/27/24 08:58 Vital Signs Vital Signs - 24 hr 06/03/24 06:46 Temperature 97.0 F L Pulse Rate 75 Respiratory Rate 20 Blood Pressure 114/66 Pulse Oximetry 100 Oxygen Delivery Room Air Exam Const: General: cooperative, healthy appearing, comfortable and no acute distress Orientation/consciousness: oriented to person, oriented to place and oriented to time HENMT: Head: normal to inspection Ears: external ears normal Face/Nose/Sinus: Normal external nose present and normal facial exam Face and sinus: normal facial exam Eyes: General: appearance normal, both eyes and all related structures Neck: Neck: normal visual inspection, trachea midline and supple Resp: Auscultation: clear to auscultation bilaterally, no crackles, no rales, no rhonchi and no wheezes Cardio: Rate: regular rate Rhythm: regular rhythm Heart sounds: no click, no murmurs and no rubs GI: GI Palp: No abdominal tenderness, No Soft to palpation, No Tenderness to palpation present (GI) and No Palpable mass present Auscultation: normal bowel sounds Skin: General skin exam: normal color and no rashes or lesions noted Neuro: General: oriented to person, oriented to place and oriented to time Extrem: General: normal to inspection, no joint enlargement, no clubbing, cyanosis or edema, no pedal edema and no calf tenderness Psych: Appearance: grossly normal Mental Status: mental status grossly normal Speech and movement: Normal speech and movement present Assessment and Plan Assessment and plan (1) Prolapse of female pelvic organs: Code(s): N81.9 - Female genital prolapse, unspecified Status: Acute Assessment and Plan: this patient is a 73 year old female with pelvic organ prolapse. She will need robotic sacral colpopexy. My part will be to perform the supracervical hysterectomy and bilateral salpingo-oophorectomy. She understands risks, be nefits, and alternatives. She has completed informed consent process is ready to proceed.
--- NOTE | 2024-06-03 07:25 | WPDHPUPDATE1 ---
History and Physical Update Update Date/Time: 06/03/24 07:25 History and Physical has been reviewed, including an updated exam of the patient. There are NO changes in the patient's condition. Risks, benefits, and alternatives have been discussed and questions answered. Patient agrees to proceed with procedure.
[2024-06-03] MEDS: ceFAZolin 2 GM/D5W 50 ML 2 GM/50 ML BAG IVPB (07:30)
[2024-06-03] MEDS: metroNIDAZOLE 500 MG/ISO 100ML 500 MG/100 ML BAG 100 MG IVPB (07:40)
[2024-06-03] MEDS: BUPIVACAINE/EPINEPHRINE 0.5% 10 ML VIAL INFILTRATE (08:14)
--- NOTE | 2024-06-03 08:29 | W.PM.PROC2 ---
Procedure Note - Detailed Date of Procedure 06/03/24 Pre-op Diagnosis Midline Cystocele, Prolapse Post-op Diagnosis Same Procedure Performed Robotic assisted supracervical hysterectomy with bilateral salpingo-oophorectomy Surgeon Derek Alston MD Anesthesia General Indications pelvic organ prolapse Findings normal-appearing uterus, ovaries, and left tube, right tube was partially resected. Some scarring over the posterior cul-de-sac peritoneum. Description of Procedure This patient was taken to the operating room. She was prepped and draped in the dorsal lithotomy position after induction of general anesthesia. the robot trocars and docking was performed by Dr. Torres. a tenaculum was applied to the vaginal mucosa at the cervicovaginal juncture posteriorly. This was done with a speculum and tenaculum. The speculum was placed. The cervix was grasped with a tenaculum. Trocars were placed by Dr. Torres. The location of the ureters was identified at the pelvic brim. The ovaries were grasped and raised. The infundibulopelvic ligaments were cauterized and transected with LigaSure cautery. This was all done in a bilateral fashion. The para ovarian tissue was cauterized and transected with LigaSure cautery bilaterally. Moving around the ovary into the broad ligament the tissue was cauterized transected with The vessel sealer cautery. The round ligaments were cauterized transected with the vessel sealer cautery this was all done in a bilateral fashion. In a stepwise fashion along the lateral aspects of the uterus the round ligament and broad ligaments were cauterized transected down to the level of the uterine arteries. The cervix was transected using unipolar cautery. the uterus was bifurcated down to the level the cervix. The uterus and bilateral tubes and ovaries were laid off to the side for Dr. Torres to remove later. The remainder of the procedure was performed by Dr. Torres, again he finished the surgery. Estimated Blood Loss 5 Urine Output 800 Drains Yes Packing No Pathology Yes Complications No immediate complications Condition Stable Disposition Floor
--- NOTE | 2024-06-03 10:21 | W.PM.PROC2 ---
Procedure Note - Detailed Date of Procedure 06/03/24 Pre-op Diagnosis Recurrent prolapse, stress incontinence Post-op Diagnosis Same Procedure Performed Robotic assisted laparoscopic sacral colpopexy Urethral sling Cystoscopy Surgeon Merrick Torres MD Anesthesia General Indications A woman with with uterine prolapse as well as stress incontinence. She desires surgical correction. She is here for the above. She understands risks of bleeding, infection, diskitis, damage to surrounding organs, bowel injury, bowel obstruction, mesh related complications including exposure and extrusion, postoperative voiding dysfunction including incontinence and retention, need for ancillary procedures, dyspareunia, recurrence of prolapse, and other perioperative intraoperative postoperative complications. She agrees to proceed. She opts for concomitant sling operation. She understands the risk of obstructive voiding as well as mesh complications. She agrees to proceed Description of Procedure She was correctly identified. Informed consent obtained. She from the operating room. She was given general anesthesia. She was given appropriate perioperative antibiotics. She was placed a low lithotomy position. Pressure points were padded. A time-out performed. I marked out the skin 3 fingerbreadths cephalad to the umbilicus. I anesthetized the skin. I incised the skin. I dissected down to the fascia. I grasped the fascia with Vane clamps. I entered the fascia sharply in a Zavala type technique. I placed sutures for later fascial closure. I placed a midline trocar. I examined the abdomen. There is no sign of any injury. Under direct vision I placed 2 additional trocars in the right upper quadrant and 2 additional trocars the left upper quadrant. She was placed in steep Trendelenburg. The robot was docked. Her pick pulling machine tender completed their portion of the procedure. Please see that operative report for details. I then sat at the console. The Sizer in the vagina created plane on the anterior and posterior vaginal wall. I took great care not to injure the vagina, bladder, or rectum. I introduced the mesh into the abdomen. I sewed the anterior leaflet of mesh on the anterior vaginal wall. I sewed the posterior leaflet of mesh on the posterior vaginal wall. I did this with 8 sutures of 2-0 Dorrance-Davonte on each side. I reflected the colon laterally. I opened the posterior peritoneum over the sacral promontory. I carried this into the cul-de-sac. I freed up the edges for later retroperitonealization. I located the anterior longitudinal ligament the sacrum. I cleaned off all fatty tissues. I then tensioned my mesh appropriately. I did a vaginal exam the bedside. I assured prolapse reduction without undue tension. Of note she had significant atrophic vaginitis. There is no sign of mesh or suture exposure. I then sewed the proximal leaflet of mesh onto the anterior longitudinal ligament of the sacrum with four sutures of 2 0 Dorrance-Davonte. I then used a 2 0 Monocryl to completely and meticulously retroperitonealized all mesh. I allowed the colon to go back to its normal anatomic location. There is no sign of any impingement. The specimen was then removed. All ports removed. Fascia was tied down. An additional suture was placed fully close the fascia. Skin was closed with Monocryl and surgical glue. She was repositioned and prepped for urethral sling. Again Atrophic vaginal changes were noted. This made the sling somewhat more difficult due to the friability of the tissues. There was a small amount of residual cystocele and a small amount residual rectocele. I opted to not perform vaginal repair due to the atrophic vaginal changes. She had excellent support of her apex. I marked out the inner thigh incisions. I anesthetized the skin and made the incisions. I then anesthetized the anterior vaginal wall at the mid urethra. I made a 1 cm incision. I dissected out laterally taking great care not to injure the refilled vaginal wall. I passed the helical trocars. I did this 1st on the left and then on the right. This was done from the thigh incision towards the vaginal incision. Sling was connected to the trocars and brought out the thigh incision. I tensioned the sling appropriately. I cut and the plastic sheaths. I closed the incision with 2 0 Vicryl. I palpated the sulcus and there is no signs of mesh exposure. I then performed cystoscopy. There was no tumors or surgical artifact. Both ureters were seen to excrete clear yellow urine. There is no surgical artifact in the bladder or urethra. I cut the excess sling material. Close incision with glue. She was awakened and transferred to PACU in stable condition. Implants Sacral colpopexy mesh Urethral sling Estimated Blood Loss 50 Urine Output 800 Packing No Pathology None sent Complications No immediate complications Condition Stable Disposition PACU
[2024-06-03] MEDS: oxyCODONE HCL (*CRX) 5 MG TAB IR PO (12:34)
--- NOTE | 2024-06-03 13:13 | SUR.PHASEII ---
PATIENT STILL FAIRLY SLEEPY; NEEDED ASSISTANCE TO STAND/WALK UPON ARRIVAL.
[2024-06-03] MEDS: ONDANSETRON INJ 4 MG/2 ML VIAL IV PUSH (14:15)
== END 2024-06-03 15:05 | disposition home or self-care (01) ==
PROVIDERS: Obstetrics & Gynecology; PCP Internal Medicine; Visit Provider Urology
PROC: (CPT 57425; principal; 2024-06-03 07:30)
PROC: (CPT 57288; 2024-06-03 07:30)
PROC: 0UT94ZZ Resection of Uterus, Percutaneous Endoscopic Approach (ICD-10-PCS; CPT 57425; 2024-06-03 07:30)
DX: N81.11 Cystocele, midline (principal); N83.02 Follicular cyst of left ovary; N39.3 Stress incontinence (female) (male); K21.9 Gastro-esophageal reflux disease without esophagitis
CPT/HCPCS: 58542; 57288; 57425; S2900 ×2; 36415; 80053; 85025; 85610; 85730; 86850; 86900; 86901; 88307; 93005; A9270; C1771; C1781; J0690; J1100; J1171; J1836; J2003; J2250; J2405; J2704; J3010; J7030; J7120

== ENCOUNTER 2024-09-30 16:04 | Emergency (ER) | payer MEDICARE, SELFPAY ==
--- NOTE | ~2024-09-30 | CT_ITS ---
EXAMINATION: CTA chest PE protocol DATE: 09/30/2024 18:38 CDT INDICATION: Shortness of breath with left-sided chest wall pain TECHNIQUE: Computed tomographic angiography (CTA) of the chest was performed with 100 mL Omnipaque-35 0 intravenous contrast. The dose-length product was 235.69 mGy-cm. Maximum intensity projection 3D-re constructions of the aorta and other arteries were constructed by the technologist on a separate work station. COMPARISON: None. FINDINGS/OBSERVATIONS: PULMONARY ARTERIES: No filling defect is identified within the main or proximal pulmonary artery. The main pulmonary artery is not enlarged. THORACIC AORTA: No aneurysmal dilatation or dissection is present. The great vessels are intact LUNGS: Patchy groundglass opacification detected bilaterally suggesting pulmonary vascular congestion . MEDIASTINUM: No morphologically suspicious or pathologically enlarged lymph nodes are identified with in the mediastinum or bilateral axilla. BONES OF THE CHEST: No acute fracture. No significant degenerative disease. No lytic or blastic lesions. HEART: The heart is enlarged, without pericardial effusion. IMPRESSION: No pulmonary embolus. No thoracic aortic dissection. Cardiomegaly with pulmonary vascular congestion. Reviewed, dictated and finalized at location A.
--- NOTE | ~2024-09-30 | XR_ITS ---
EXAMINATION: XR chest 2V 09/30/2024 16:47 INDICATION: Chest pain PROCEDURE: 2 view chest COMPARISON: 10/14/2022 FINDINGS: The lungs are clear. The cardiomediastinal silhouette is within normal limits. There are no pleural effusions. There is no pneumothorax suspected. IMPRESSION: 1: NO ACUTE CARDIOPULMONARY DISEASE. Reviewed, dictated and finalized at location A.
--- NOTE | 2024-09-30 16:06 | ECG_ITS ---
Test Date: 2024-09-30 16:11:10 Measurements Intervals [place] Rate: 65 P: 51 AR: 152 QRS: 76 QRSD: 109 T: 70 QT: 411 QTc: 428 Interpretive Statements SINUS RHYTHM ANTEROSEPTAL MYOCARDIAL INFARCTION , OF INDETERMINATE AGE ABNORMAL ECG Compared to ECG 05/27/2024 10:12:41 HEART RATE HAS INCREASED Electronically Signed On 10-01-2024 06:02:11 CDT by Maciej Morales D.O.
[2024-09-30 16:14] VITALS: BP 166/72; PULSE 69; RESP 18; TEMP 36.6; O2SAT 99
--- NOTE | 2024-09-30 16:15 | ED.CHESTPAIN ---
HPI - Chest Pain General Chief Complaint: Chest Pain <Yadira Adams APRN - Last Filed: 09/30/24 16:19> Stated Complaint: chest pain, radiates to LUE/jaw <Yadira Adams APRN - Last Filed: 09/30/24 16:19> Time Seen by Provider: 09/30/24 16:10 <Yadira Adams APRN - Last Filed: 09/30/24 16:19> Focused HPI: Patient is a 73-year-old female who presents to the ER with chest pain that started this morning. 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 Patient reports this afternoon her chest became tighter, it became more difficult to breathe, and she developed left arm pain that radiated up to her neck. She endorses a history of GERD and osteoarthritic pain. It is unclear during the time examination why patient sees cardiology. She denies any recent fevers, abdominal pain, urinary symptoms, back pain. GENERAL: Well-appearing, well-nourished, and in no acute distress. HEAD: Normocephalic, atraumatic. CHEST: Clear to auscultation. ?No respiratory distress. HEART: Regular rate and rhythm.? NEURO: ?Alert and oriented x3. Patient screened in triage and initial orders placed.? ?Additional care and disposition to be based upon?diagnostic testing and treatment. <Yadira Adams APRN - Last Filed: 09/30/24 16:19> History of Present Illness HPI narrative: Agree with HPI. History of mitral valve prolapse. Has pain when she takes a deep breath. No hemoptysis. No recent infection but did recently have shingles to her scalp. No exertional component. <Albert Sauceda MD - Last Filed: 09/30/24 19:58> Related Data Home Medications: Home Medications ?Medication ?Instructions ?Recorded ?Confirmed ?Last Taken ?Type aspirin 81 mg tablet,delayed 81 mg PO DAILY 03/02/21 06/03/24 05/30/24 07:00 History release (Adult Low Dose Aspirin) Lactobacillus 1 cap PO DAILY 05/27/24 06/03/24 05/30/24 07:00 History acidophilus-Bifidobac.animalis 2.5 billion cell capsule (Daily Probiotic) ascorbic acid (vitamin C) 1,000 mg 1 g PO DAILY 05/27/24 06/03/24 05/30/24 07:00 History tablet biotin 10,000 mcg capsule 10,000 mcg PO DAILY 05/27/24 06/03/24 05/30/24 07:00 History bromelains 375 mg capsule 375 mg PO DAILY 05/27/24 06/03/24 05/30/24 07:00 History fiber 2 tablet PO BID 05/27/24 06/03/24 05/30/24 07:00 History rfvzjhzpckb-[id number]-hyal 2 tablet PO BID 05/27/24 06/03/24 05/30/24 07:00 History 750 mg-100 mg-125 mg-1.65 mg tablet grape seed extract 100 mg capsule 200 mg PO DAILY 05/27/24 06/03/24 05/30/24 07:00 History magnesium 500 mg tablet 15 mg PO DAILY 05/27/24 05/27/24 Unknown History melatonin 1 mg tablet 2 mg PO HS PRN Insomnia 05/27/24 05/27/24 Unknown History minocycline 50 mg capsule 50 mg PO HS CLEAR UP BILAT EYE 05/27/24 05/27/24 Unknown History INFECT omega-3 fatty acids-fish oil 684 1 cap PO DAILY 05/27/24 05/27/24 Unknown History mg-1,200 mg capsule,delayed release potassium 99 mg tablet 99 mg PO DAILY 05/27/24 05/27/24 Unknown History <Yadira Adams APRN - Last Filed: 09/30/24 16:19> Allergies/Adverse Reactions: Allergies Allergy/AdvReac Type Severity Reaction Status Date / Time No Known Allergies Allergy Verified 05/27/24 08:58 <Yadira Adams APRN - Last Filed: 09/30/24 16:19> Review of Systems Review of Systems: All systems reviewed & are unremarkable except as noted in HPI and below <Albert Sauceda MD - Last Filed: 09/30/24 19:58> Constitutional: Constitutional: Reports no additional constitutional complaints <Albert Sauceda MD - Last Filed: 09/30/24 19:58> ENT: Reports system reviewed and no additional complaints, except as documented <Albert Sauceda MD - Last Filed: 09/30/24 19:58> Cardiovascular: Cardiovascular: Reports no additional cardiovascular complaints <Albert Sauceda MD - Last Filed: 09/30/24 19:58> Respiratory: Respiratory: Reports no additional respiratory complaints <Albert Sauceda MD - Last Filed: 09/30/24 19:58> Gastrointestinal: Gastrointestinal: Reports no additional gastrointestinal complaints <Albert Sauceda MD - Last Filed: 09/30/24 19:58> [facility] Past Medical History Medical History: Medical History BMI 23.0-23.9, adult Bulging disc Cervical spine arthritis GERD (gastroesophageal reflux disease) Osteoarthritis of right hip Osteopenia Ulcer <Yadira Adams APRN - Last Filed: 09/30/24 16:19> Surgical History Surgical History: Surgical History H/O tubal ligation H/O wrist surgery broken wrist, surgery august 2012, Dr. Wasserman Hx of tonsillectomy <Yadira Adams APRN - Last Filed: 09/30/24 16:19> Family History Family History: Family History Mother Breast cancer Sibling Breast cancer Other Cancer Diabetes mellitus Heart disease <Yadira Adams APRN - Last Filed: 09/30/24 16:19> Social History Social History: Social History Smoking status: Never smoker Alcohol intake: never Substance use: never Substance use type: does not use Lack of Transportation: No Lack of Food: Never True Current Housing: I Have Housing Concerned About Future Housing: No Difficulty Paying Gas/Electric Bills: No Difficulty Paying for Meds: No Currently Unemployed: No Education: Associate Degree Difficulty w/ Childcare or Family Care: No Living arrangements: with family Occupation/Education: retired Additional occupation/education comments: her at [employer] Gender identity (if verbalized by the patient): Female Spiritual care concerns: No <Yadira Adams APRN - Last Filed: 09/30/24 16:19> Exam Narrative: GENERAL: Well-appearing, well-nourished, and in no acute distress. HEAD: Normocephalic, atraumatic. ENT: Mucous membranes moist. CHEST: Clear to auscultation. No respiratory distress. HEART: Regular rate and rhythm. Normal peripheral pulses. ABDOMEN: Soft, nontender, nondistended. EXTREMITIES: Normal range of motion. No edema. SKIN: Warm, dry, no rash. NEURO: Alert and oriented x3. PSYCH: Normal mood and affect. <Albert Sauceda MD - Last Filed: 09/30/24 19:58> Course Course Emergency Course: Patient resting comfortably. Pain improved. Normal chest x-ray. CTA with ground-glass infiltrates that could be pulmonary edema but BNP normal. Troponin negative x2. Patient has history of ulcer so recommend scheduled Tylenol for home and follow-up with PCP. <Albert Sauceda MD - Last Filed: 09/30/24 19:58> Vital Signs Vital signs: Vital Signs Temperature 97.9 F 09/30/24 16:14 Pulse Rate 69 09/30/24 16:14 Respiratory Rate 18 09/30/24 16:14 Blood Pressure 166/72 H 09/30/24 16:14 Pulse Oximetry 99 09/30/24 16:14 Oxygen Delivery Room Air 09/30/24 16:14 Temperature 97.9 F 09/30/24 16:14 Pulse Rate 65 09/30/24 17:36 Respiratory Rate 16 09/30/24 17:36 Blood Pressure 137/76 09/30/24 17:36 Pulse Oximetry 100 09/30/24 17:36 Oxygen Delivery Room Air 09/30/24 17:33 <Yadira Adams, BRAID FOLDER - Last Filed: 09/30/24 16:19> Vital Signs Temperature 97.9 F 09/30/24 16:14 Pulse Rate 69 09/30/24 16:14 Respiratory Rate 18 09/30/24 16:14 Blood Pressure 166/72 H 09/30/24 16:14 Pulse Oximetry 99 09/30/24 16:14 Oxygen Delivery Room Air 09/30/24 16:14 Temperature 97.9 F 09/30/24 16:14 Pulse Rate 65 09/30/24 17:36 Respiratory Rate 16 09/30/24 17:36 Blood Pressure 137/76 09/30/24 17:36 Pulse Oximetry 100 09/30/24 17:36 Oxygen Delivery Room Air 09/30/24 17:33 <Albert Sauceda MD - Last Filed: 09/30/24 19:58> MDM - Chest Pain Lab Data Result diagrams: 09/30/24 16:16 09/30/24 16:16 <Yadira Adams APRN - Last Filed: 09/30/24 16:19> Labs: Lab Results 09/30/24 09/30/24 09/30/24 Range/Units 16:16 16:17 19:08 WBC 6.4 (4.5-10.0) K/mm3 RBC 4.34 (4.2-5.4) M/mm3 Hgb 12.9 (12.0-15.0) g/dL Hct 39.2 (37.0-47.0) % MCV 90.3 (80-100) fl MCH 29.7 (26-34) pg MCHC 32.9 (32-36) g/dl RDW 13.0 (11.5-14.5) % Plt Count 285 (150-375) k/mm3 MPV 9.4 (7.4-10.4) fl Immature Gran % (Auto) 0.2 (0-0.5) % Neut % (Auto) 53.2 (45.5-73.1) % Lymph % (Auto) 34.1 (18.3-44.2) % [place] % (Auto) 10.5 H (2.6-8.5) % Eos % (Auto) 1.4 (0-4.4) % Baso % (Auto) 0.6 (0.2-1.2) % Lymph # (Auto) 2.18 (0.9-3.2) K/mm3 [place] # (Auto) 0.7 H (0.1-0.6) K/mm3 Eos # (Auto) 0.1 (0-0.3) K/mm3 Baso # (Auto) 0.0 (0.0-0.1) K/mm3 Abs Immat Gran (auto) 0.01 (0.00-0.031) K/mm3 Absolute Neuts (auto) 3.4 (1.3-6.7) K/mm3 Absolute Nucleated RBC 0.000 (0.0-0.012) K/mm3 Nucleated RBC % 0.0 (0.0-0.2) % PT 13.1 (11.1-14.7) Seconds INR 1.0 APTT 27.8 (22.3-36.8) Seconds Sodium 135 L (137-145) mmol/L Potassium 4.2 (3.4-5.0) mmol/L Chloride 101 (98-107) mmol/L Carbon Dioxide 26 (22-30) mmol/L Anion Gap 8 (4-12) mmol/L BUN 15 D (7-17) mg/dL Creatinine 0.59 L (0.7-1.0) mg/dL Estim Creat Clear Calc 76 ml/min Estimated GFR > 60 (59 - ) Glucose 98 (65-110) mg/dL Calcium 9.0 (8.4-10.2) mg/dL Total Bilirubin 0.3 (0.2-1.3) mg/dL AST 29 (14-36) U/L ALT 17 (6-35) U/L Alkaline Phosphatase 76 (38-126) U/L Troponin I < 0.012 < 0.012 (0.000-0.034) ng/mL NT-Pro-B Natriuret Pep 157 H Cancelled (19.9-100) pg/mL Total Protein 7.0 (6.3-8.2) g/dL Albumin 4.3 (3.5-5.1) g/dL Lipase 151 (23-300) U/L Influenza A (RT-PCR) Negative (Negative) Influenza B (RT-PCR) Negative (Negative) RSV (RT-PCR) Negative (Negative) SARS-CoV-2 RNA (RT-PCR) Negative (Negative) <Yadira Adams, BRAID FOLDER - Last Filed: 09/30/24 16:19> Lab Results 09/30/24 09/30/24 09/30/24 Range/Units 16:16 16:17 19:08 WBC 6.4 (4.5-10.0) K/mm3 RBC 4.34 (4.2-5.4) M/mm3 Hgb 12.9 (12.0-15.0) g/dL Hct 39.2 (37.0-47.0) % MCV 90.3 (80-100) fl MCH 29.7 (26-34) pg MCHC 32.9 (32-36) g/dl RDW 13.0 (11.5-14.5) % Plt Count 285 (150-375) k/mm3 MPV 9.4 (7.4-10.4) fl Immature Gran % (Auto) 0.2 (0-0.5) % Neut % (Auto) 53.2 (45.5-73.1) % Lymph % (Auto) 34.1 (18.3-44.2) % [place] % (Auto) 10.5 H (2.6-8.5) % Eos % (Auto) 1.4 (0-4.4) % Baso % (Auto) 0.6 (0.2-1.2) % Lymph # (Auto) 2.18 (0.9-3.2) K/mm3 [place] # (Auto) 0.7 H (0.1-0.6) K/mm3 Eos # (Auto) 0.1 (0-0.3) K/mm3 Baso # (Auto) 0.0 (0.0-0.1) K/mm3 Abs Immat Gran (auto) 0.01 (0.00-0.031) K/mm3 Absolute Neuts (auto) 3.4 (1.3-6.7) K/mm3 Absolute Nucleated RBC 0.000 (0.0-0.012) K/mm3 Nucleated RBC % 0.0 (0.0-0.2) % PT 13.1 (11.1-14.7) Seconds INR 1.0 APTT 27.8 (22.3-36.8) Seconds Sodium 135 L (137-145) mmol/L Potassium 4.2 (3.4-5.0) mmol/L Chloride 101 (98-107) mmol/L Carbon Dioxide 26 (22-30) mmol/L Anion Gap 8 (4-12) mmol/L BUN 15 D (7-17) mg/dL Creatinine 0.59 L (0.7-1.0) mg/dL Estim Creat Clear Calc 76 ml/min Estimated GFR > 60 (59 - ) Glucose 98 (65-110) mg/dL Calcium 9.0 (8.4-10.2) mg/dL Total Bilirubin 0.3 (0.2-1.3) mg/dL AST 29 (14-36) U/L ALT 17 (6-35) U/L Alkaline Phosphatase 76 (38-126) U/L Troponin I < 0.012 < 0.012 (0.000-0.034) ng/mL NT-Pro-B Natriuret Pep 157 H Cancelled (19.9-100) pg/mL Total Protein 7.0 (6.3-8.2) g/dL Albumin 4.3 (3.5-5.1) g/dL Lipase 151 (23-300) U/L Influenza A (RT-PCR) Negative (Negative) Influenza B (RT-PCR) Negative (Negative) RSV (RT-PCR) Negative (Negative) SARS-CoV-2 RNA (RT-PCR) Negative (Negative) <Albert Sauceda MD - Last Filed: 09/30/24 19:58> Imaging Data Radiologist's impression: ITS Impressions Chest X-Ray 09/30/24 17:13 IMPRESSION: 1: NO ACUTE CARDIOPULMONARY DISEASE. Chest CTA 09/30/24 18:37 IMPRESSION: No pulmonary embolus. No thoracic aortic dissection. Cardiomegaly with pulmonary vascular congestion. <Albert Sauceda MD - Last Filed: 09/30/24 19:58> ECG Data EKG #1: ECG completion date: 09/30/24 <Albert Sauceda MD - Last Filed: 09/30/24 19:58> ECG completion time: 19:14 <Albert Sauceda MD - Last Filed: 09/30/24 19:58> EKG Interpretation: normal rate (63), sinus rhythm, non-specific ST changes, normal QRS, normal QT and NL axis <Albert Sauceda MD - Last Filed: 09/30/24 19:58> Discharge Plan Discharge Clinical Impression: Pleurisy <Yadira Adams APRN - Last Filed: 09/30/24 16:19> Patient Disposition: Home, Self-Care <Yadira Adams APRN - Last Filed: 09/30/24 16:19> Condition: Stable <Yadira Adams APRN - Last Filed: 09/30/24 16:19> Instructions: Pleurisy (ED) <Yadira Adams APRN - Last Filed: 09/30/24 16:19> Additional Instructions: Please return to the emergency department if you develop severe and persistent chest pain, difficulty breathing, dizziness, leg swelling or if you are coughing up blood as these can be signs of a medical emergency. Please call your doctor for a follow up appointment to determine the need for further testing. <Yadira Adams APRN - Last Filed: 09/30/24 16:19> Patient Language: Cymro <Yadira Adams APRN - Last Filed: 09/30/24 16:19> Prescriptions: New acetaminophen 325 mg capsule 650 mg PO Q6H 7 Days Qty: 56 0RF No Action aspirin [Adult Low Dose Aspirin] 81 mg tablet,delayed release (DR/EC) 81 mg PO DAILY omega-3 fatty acids-fish oil 684-1,200 mg Capsule,Delayed Release(Dr/Ec) 1 cap PO DAILY ascorbic acid (vitamin C) 1,000 mg Tablet 1 g PO DAILY melatonin 1 mg Tablet 2 mg PO HS PRN (Reason: Insomnia) magnesium 500 mg Tablet 15 mg PO DAILY potassium 99 mg Tablet 99 mg PO DAILY rlsdlech-olmoc-bai 149-hyal ac 750 mg-100 mg- 125 mg-1.65 mg Tablet 2 tablet PO BID fiber Tablet 2 tablet PO BID Daily Probiotic 2.5 billion cell Capsule 1 cap PO DAILY biotin 10,000 mcg Capsule 10,000 mcg PO DAILY grape seed extract 100 mg Capsule 200 mg PO DAILY bromelains 375 mg Capsule 375 mg PO DAILY minocycline 50 mg capsule 50 mg PO HS hydrocodone-acetaminophen 5-325 mg tablet 1 tablet PO Q6H PRN (Reason: pain) Qty: 20 0RF docusate sodium [Colace] 100 mg capsule 100 mg PO BID Qty: 40 0RF pantoprazole 40 mg tablet,delayed release (DR/EC) 40 mg PO QAM Qty: 90 3RF Rx Instructions: 90 day fill if insurance approves <Yadira Adams APRN - Last Filed: 09/30/24 16:19> Follow-up/Referrals: Aliyah London MD [Primary Care Provider] - <Yadira Adams, REYES - Last Filed: 09/30/24 16:19>
[2024-09-30 16:24] LABS: Basophils Percent Auto 0.6 % (0.2-1.2); Eosinophils Absolute Auto 0.1 K/mm3 (0-0.3); Eosinophils Percent Auto 1.4 % (0-4.4); Hematocrit 39.2 % (37.0-47.0); Hemoglobin 12.9 g/dL (12.0-15.0); Immature Granulocyte Absolute 0.01 K/mm3 (0.00-0.031); Immature Granulocyte Percent A 0.2 % (0-0.5); Lymphocytes Absolute Auto 2.18 K/mm3 (0.9-3.2); Lymphocytes Percent Auto 34.1 % (18.3-44.2); Mean Corpuscular HGB Conc 32.9 g/dl (32-36); Mean Corpuscular Hemoglobin 29.7 pg (26-34); Mean Corpuscular Volume 90.3 fl (80-100); Mean Platelet Volume 9.4 fl (7.4-10.4); Monocytes Absolute Auto 0.7 K/mm3 (0.1-0.6); Monocytes Percent Auto 10.5 % (2.6-8.5); Neutrophils Absolute Auto 3.4 K/mm3 (1.3-6.7); Neutrophils Percent Auto 53.2 % (45.5-73.1); Platelet Count Result 285 k/mm3 (150-375); Red Blood Count 4.34 M/mm3 (4.2-5.4); White Blood Count 6.4 K/mm3 (4.5-10.0)
[2024-09-30 16:35] LABS: Alanine Aminotransferase 17 U/L (6-35); Albumin Level 4.3 g/dL (3.5-5.1); Alkaline Phosphatase 76 U/L (38-126); Anion Gap 8 mmol/L (4-12); Aspartate Amino Transferase 29 U/L (14-36); Bilirubin,Total 0.3 mg/dL (0.2-1.3); Blood Urea Nitrogen 15 mg/dL (7-17); Carbon Dioxide 26 mmol/L (22-30); Chloride 101 mmol/L (98-107); Estimated CRCL calculation 76 ml/min; Estimated Glomerular Filt Rate > 60; Glucose 98 mg/dL (65-110); Lipase 151 U/L (23-300); Partial Thromboplastin Time 27.8 Seconds (22.3-36.8); Potassium 4.2 mmol/L (3.4-5.0); Prothrombin Time 13.1 Seconds (11.1-14.7); Sodium 135 mmol/L (137-145)
[2024-09-30 16:47] LABS: NT Pro B Type Natriuretic Pept 157 pg/mL (19.9-100); Troponin I < 0.012 ng/mL (0.000-0.034)
[2024-09-30 17:00] LABS: Influenza A QL RT-PCR Negative (Negative); Influenza B QL RT-PCR Negative (Negative); RSV RNA, RT-PCR Negative (Negative); SARS-CoV-2 RNA PCR Negative (Negative)
--- OUTSIDE RECORDS SUMMARY | 2024-09-30 17:22 | XMS_ITS | Data Portability ---
Author Organization [facility] [place] Address [address] [place] [address] Care Team Providers Care Installation Tech Name Role Phone ANAYELI SANTIAGO Primary Care Provider Assessment Encounter Date Assessment Date Assessment LastModified by Organization Details LastModified Time 03/09/2021 03/09/2021 Annual gynecological exam performed. Patient will come back in a year unless there are new symptoms. [email or web address] Not available 03/09/2021 10:07:23 06/10/2023 06/10/2023 Annual gynecological exam performed. Patient will come back in a year unless there are new symptoms. Not available 06/10/2023 10:57:52 Plan of Treatment Reminders Order Date Submit Date Provider Last Modified By Organization Details Last Modified Time Details Appointments None recorded. Lab None recorded. Referral endocrinolo gy referral - PLEASE CALL PATIENT TO SCHEDULE APPOINTMENT THANK YOU 2023 024 CHATA Navarro MD, [address], [place], [address], 4 05:01:36 [email or web address] gist referral - Prolapse of female genital organsPleas e call patient to schedule an appointment . 2022 023 jewel Torres MD, [address], [place], [address], 3 12:15:38 Procedures None recorded. Surgeries None recorded. Imaging MAMMO, screening, digital, bilateral 2020 021 [facility], [address], [address], [place], [address], 16:55:01 DEXA, axial skeleton + vertebral fracture assessment [address], [address], [place], [address], 17:49:19 Medication Orders None recorded. Patient TargetsNo targets recorded. Patient InstructionsNo instructions recorded. Reason for Referral Urogynecologist Referral for Prolapse of female genital organs Prolapse of female genital organs. Please call patient to schedule an appointment. Prolapse of female genital organsPlease call patient to schedule an appointment. Referring Physician: Derek Alston CHIEF WELLNESS OFFICER, Encounter Date: 01/20/2023 Endocrinology Referral for O steopenia OSTEOPENIA ON DEXA PLEASE CALL PATIENT TO SCHEDULE APPOINTMENT THANK YOU Referring Physician: Derek Alston CHIEF WELLNESS OFFICER, Encounter Date: 10/09/2023 Results Created Date Observation Date Name Description Value Unit Range Abnormal Flag Note LastModifiedBy Organization Detail LastModifiedTime 06/12/20 23 06/12/2023 IMAGE GUIDE D PAP AND HPV REGAR DLESS image guided Pap, HPV regardless of Pap result SEE RESULT S BELOW CASE REPOR T: Cytol ogy Gynec ologi jarrod Repor t Case: [id number] [employer] [facility] Provi adelita: Austin Alston MD Colle cted: 06/12 1150 Order ing Locat ion: [place] Patho log[facility] Recei mikaela: 06/13 0127 First Scree n: Travis Sands , CT Speci men: Scree yuki Pap - Image d, Cervi x STATE MENT OF ADEQU ACY: Satis facto ry for evalu ation Trans forma tion zone compo nent prese nt FINAL DIAGN OSIS: Negat agnes for Intra epith elial Lesio n or Santhosh castorena (NIL) . Elect polina cantu kathy d by Travis Sands CT on 06/14 at 1:03 PM ----- ----- ----- ----- ----- ----- ----- ----- ----- ----- ----- ----- ----- ----- ----- ----- ----- ---- HPV RESUL TS: HPV mRNA E6/E7 : No HPV mRNA Detec li NOTE: This high risk HPV mRNA assay detec ts fourt een high- risk HPV types (16, 18, 31, 33, 35, 39, 45, 51, 52, 56, 58, 59, 66, 68) witho ut diffe renti ation . COMME NT: This speci men was revie wed by a Cytot echno logis t and/o r Patho logis t (as indic ated in this repor t) after evalu ation using the Thinp rep Imagi ng Syste m. CLINI JARROD INFOR MATIO N: Menst rual Statu s: LMP (if appli cable ): Clini jarrod Histo ry/Pr eviou s Pap: Type of Neopl chino (if appli cable ): Signi fican t Clini jarrod Findi ngs: Other Histo ry: Hormo hemant (if appli cable ): PAP EDUCA MAGALIS L NOTE: The Pap Test is a scree yuki test with an inher ent false negat agnes rate. Liqui d-bas ed sampl ing may decre ase, but will not elimi candido, false negat agnes resul ts. A negat agnes resul t does not precl ude the prese nce and/o r devel opmen t of disea se, since the prese nce of abnor mal cells in the sampl e depen ds on the locat ion of the lesio n and sampl ing techn ique. Sergio nued regul ar scree yuki is the best metho d of cance r preve ntion . If repor li cytol ogic findi ng do not corre late with physi jarrod and/o r histo rical findi ngs, fur er inves tigat ion is recom michael d, as clini wilton andrew nted. Not Available [facility] (Lab) [address], [place], [address], 06/14/2023 14:07:06 03/23/20 21 MAMMO , nasreene yuki, kortney al, bilat eral No observ ation record ed. [facility] [address], [place], [address], 03/24/2021 09:41:25 04/13/20 23 04/13/2023 imagi ng/di agnos tic resul t No observ ation record ed. [facility] [address], [place], [address], 04/13/2023 18:02:15 08/07/19 24 08/07/2023 DEXA, axial skele ton + verte bral fract ure asses sment No observ ation record ed. [email or web address] [facility] [address], [place], [address], 10/03/2023 15:55:42 Result Notes None recorded. Procedures Surgical History Date Name Laterality Status Provider Name and Address Organization Details Recorded Time 08/07/19 24 Most Recent Bone Density completed Melissa Prather [facility] 04/26/2024 11:26:02 06/12/20 23 Date of Last Pap Smear completed Amanda Salazar [facility] 10/09/2023 11:18:30 04/13/20 23 Date of Last Mammogram completed Amanda Salazar [facility] 10/09/2023 11:16:34 03/18/20 21 completed Pat Guerrero [facility] 01/20/2023 09:47:05 04/01/20 19 Date of Last Colonoscopy completed Pat Guerrero [facility] 01/20/2023 09:47:05 03/03/20 19 completed Melissa Prather [facility] 04/26/2024 11:26:02 03/03/20 19 Colonoscopy completed [facility] 10/18/2023 08:48:36 07/03/19 15 procedure on skin completed [facility] 03/09/2021 19:22:18 07/03/19 13 procedure on wrist completed [facility] 03/09/2021 19:22:58 07/03/19 08 Colonoscopy completed [facility] 03/09/2021 19:22:40 07/03/18 85 Tubal Ligation completed [facility] 03/09/2021 19:22:29 07/03/18 57 Tonsillectomy completed [facility] 03/09/2021 19:25:07 Imaging Results Imaging Date Name Status LastModified by Organiz ation Details LastModified Time 03/23/2021 MAMMO, screening, digital, bilateral completed [facility] [address], [place], [address], 03/24/2021 09:41:25 04/13/2023 imaging/diagnos tic result completed [facility] [address], [place], [address], 04/13/2023 18:02:15 08/07/2023 DEXA, axial skeleton + vertebral fracture assessment completed [email or web address] [facility] [address], [place], [address], 10/03/2023 15:55:42 Procedure Notes None recorded. Medical Equipment None Reported. Allergies No known drug allergies Medications Name Sig Start Date Stop Date Status Note LastModified by Organization Details LastModified Time cyclobenz aprine 10 mg tablet TAKE 1 TABLET BY MOUTH THREE TIMES DAILY NEEDED 06/10 completed Not Available Not Available Not Available pravastat in 40 mg tablet TAKE 1 TABLET BY MOUTH DAILY active Not Available Not Available No t Available benzonata te 200 mg capsule TAKE 1 CAPSULE BY MOUTH THREE TIMES DAILY NEEDED FOR COUGH 06/10 completed Not Available Not Available Not Available hydrocodo ne 5 mg-acetam inophen 325 mg tablet TAKE 1 TABLET BY MOUTH EVERY 8 HOURS NEEDED FOR PAIN 10/08 completed Not Available Not Available Not Available prednison e 20 mg tablet 06/10 completed Not Available Not Available Not Available metronida zole 500 mg tablet TAKE 1/2 TABLET BY MOUTH EVERY 8 HOURS FOR 10 DAYS 06/10 completed Not Available Not Available Not Available tramadol 50 mg tablet TAKE 1 TABLET BY MOUTH EVERY 6 HOURS NEEDED FOR PAIN 06/10 completed Not Available Not Available Not Available pantopraz ole 20 mg tablet,de layed release TAKE 1 TABLET BY MOUTH TWICE DAILY active Not Available Not Available No t Available tamsulosi n 0.4 mg capsule TAKE 1 CAPSULE BY MOUTH EVERY 24 HOURS 06/10 completed Not Available Not Available Not Available meclizine 25 mg tablet TAKE 1 TABLET BY MOUTH TWICE DAILY 06/10 completed Not Available Not Available Not Available minocycli ne 50 mg capsule TAKE 1 CAPSULE BY MOUTH DAILY active Not Available Not Available No t Available magnesium 100 mg capsule 06/10 completed Prescrib ed Elsewher e: Yes Loca tion: [facility] odify By: lbillhar tz Encou nter DateTime : 08/21/19 12 04:16:29 PM Not Available Not Available Not Available diclofena c sodium 75 mg tablet,de layed release TAKE 1 TABLET BY MOUTH TWICE DAILY NEEDED FOR PAIN 06/10 completed Not Available Not Available Not Available gabapenti n 100 mg capsule TAKE 1 CAPSULE BY MOUTH THREE TIMES DAILY active Not Available Not Available No t Available lotepredn ol etabonate 0.5 % eye drops,marbella pension INSTILL 1 DROP INTO BOTH EYES AT BEDTIME 10/08 completed Not Available Not Available Not Available methylpre dnisolone 4 mg tablets in a dose pack FOLLOW PACKAGE DIRECTIO NS 06/10 completed Not Available Not Available Not Available multivita min capsule take 1 capsule by oral route every day active Prescrib ed Elsewher e: Yes Loca tion: Kelsey [facility]ers [facility] odify By: brandyn garcia DateTime : 09/03/19 14 09:30:00 AM Not Available Not Available Not Available Calcium+D 400 mg -133.3 unit tablet active Prescrib ed Elsewher e: Yes Loca tion: Kelsey bowers [facility] odify By: brandyn garcia DateTime : 09/03/19 14 09:30:00 AM Not Available Not Available Not Available cyclobenz aprine 5 mg tablet TAKE 1 TABLET BY MOUTH THREE TIMES DAILY 06/10 completed Not Available Not Available Not Available Restasis 0.05 % eye drops in a dropperet te INSTILL 1 DROP IN BOTH EYES TWICE DAILY 06/10 completed Not Available Not Available Not Available Premarin 0.625 mg/gram vaginal cream insert (1G) by vaginal route every day use 2-3 times weekly 09/08 completed Prescrib ed Elsewher e: No Locat ion: Kelsey bowers [facility] odify By: kelly Meneses ntfinn DateTime : 09/03/19 14 09:30:00 AM Not Available Not Available Not Available nitrofura ntoin monohydra te/macroc rystals 100 mg capsule TAKE 1 CAPSULE BY MOUTH EVERY 12 HOURS FOR 10 DAYS 06/10 completed Not Available Not Available Not Available Lunesta 1 mg tablet take 2 tablet by oral route every day at bedtime 08/24 completed Prescrib ed Elsewher e: Yes Loca tion: Kelsey bowers [facility] odify By: shannan aguilar DateTime : 08/21/19 12 04:16:29 PM Not Available Not Available Not Available Infuvite Adult 3300 unit-150 mcg/10 mL intraveno us solution 09/02 completed Prescrib ed Elsewher e: Yes Loca tion: [facility] odify By: brandyn garcia DateTime : 08/21/19 12 04:16:29 PM Not Available Not Available Not Available Protonix 40 mg granules delayed-r elease packet take 1 packet by oral route every day mixed in 1 teaspoon ful of applesau ce or apple juice 01/19 completed Prescrib ed Elsewher e: Yes Loca tion: [facility] odify By: tmryan E ncounter DateTime : 05/07/20 08:45:00 AM Not Available Not Available Not Available Fish Oil 360 mg-1,200 mg capsule active Prescrib ed Elsewher e: Yes Loca tion: [facility] odify By: lbillhar tz Encou nter DateTime : 08/21/19 04:16:29 PM Not Available Not Available Not Available Paxlovid 300 mg (150 mg x 2)-100 mg tablets in a dose pack 06/10 completed Not Available Not Available Not Available Vitals Date Recorded Body height Body mass index (BMI) Body weight Systolic blood pressure Diastolic blood pressure Provider Name and Address Organization Details Last Updated DateTime 03/09/2021 176.53 cm 22.9 kg/m2 46538 g 100 mm[Hg] 67 mm[Hg] Amanda Salazar [facility] 1 10:08:22 Date Recorded Body height Body mass index (BMI) Body weight Systolic blood pressure Diastolic blood pressure Provider Name and Address Organization Details Last Updated DateTime 01/20/2023 176.53 cm 22.7 kg/m2 57224.41 g 128 mm[Hg] 76 mm[Hg] Pat Yolanda [facility] 3 09:46:54 Date Recorded Body height Body mass index (BMI) Body weight Systolic blood pressure Diastolic blood pressure Provider Name and Address Organization Details Last Updated DateTime 06/10/2023 176.53 cm 23.2 kg/m2 05733.34 g 103 mm[Hg] 70 mm[Hg] Frida Luna [facility] 3 11:08:39 Date Recorded Body height Body mass index (BMI) Body weight Systolic blood pressure Diastolic blood pressure Provider Name and Address Organization Details Last Updated DateTime 10/09/2023 176.53 cm 23.6 kg/m2 94858.96 g 120 mm[Hg] 75 mm[Hg] Amanda Salazar [facility] 4 11:15:11 Date Recorded Body height Body mass index (BMI) Body weight Systolic blood pressure Diastolic blood pressure Provider Name and Address Organization Details Last Updated DateTime 04/26/2024 176.53 cm 23 kg/m2 34346.59 g 118 mm[Hg] 73 mm[Hg] Melissa Prather [facility] 11:25:38 Social History Question Answer Notes LastModified by Organizat ion Details LastModified Time Tobacco Smoking Status Never Smoker Laura Odom karoline, [facility] 01/20/2023 09:20:29 What Is Your Level Of Alcohol Consumption? None [email or web address] Information not available 03/09/2021 Are You Blind Or Do You Have Difficulty Seeing? No [email or web address] Information n ot available 03/09/2021 What Is Your Level Of Caffeine Consumption? Moderate [email or web address] Information not available 03/09/2021 How Much Tobacco Do You Chew? None [email or web address] Information not available 10/09/2023 In The 14 Days Before Symptom Onset, Have You Had Close Contact With A Laboratory-confirm ed COVID-19 While That Case Was Ill? No [email or web address] Information n ot available 03/09/2021 In The 14 Days Before Symptom Onset, Have You Had Close Contact With A Person Who Is Under Investigation For COVID-19 While That Person Was Ill? No [email or web address] Information not available 03/09/2021 Have You Been To An Area Known To Be High Risk For COVID-19? No [email or web address] Information not available 03/09/2021 Are You Deaf Or Do You Have Serious Difficulty Hearing? No [email or web address] Information not available 03/09/2021 What Type Of Diet Are You Following? REGULAR [email or web address] Information n ot available 03/09/2021 What Is The Highest Grade Or Level Of School You Have Completed Or The Highest Degree You Have Received? EW06306-5 [email or web address] Information not available 10/09/2023 What Is Your Occupation? [employer] [email or web address] Information not available 10/09/2023 Are There Any Guns Present In Your Home? No [email or web address] Information not available 10/09/2023 Do You Use Protection During Sex? No [email or web address] Information not available 10/09/2023 Do You Use Your Seat Belt Or Car Seat Routinely? Yes [email or web address] Information not available 03/09/2021 Are You Sexually Active? Yes Information not available 06/10/2023 Do You Have Smoke And Carbon Monoxide Detectors In Your Home? Yes Information not available 03/09/2021 How Much Tobacco Do You Smoke? No [email or web address] Information not available 10/09/2023 Do You Feel Stressed (tense, Restless, Nervous, Or Anxious, Or Unable To Sleep At Night)? [id number] [email or web address] Information not available 10/09/2023 Do You Use Any Illicit Or Recreational Drugs? No [email or web address] Information not available 03/09/2021 Do You Use Sunscreen Routinely? Yes [email or web address] Information not available 03/09/2021 Has Tobacco Cessation Counseling Been Provided? No [email or web address] Information not available 01/20/2023 Have You Used IV Drugs? No [email or web address] Information not available 10/09/2023 Do You Or Have You Ever Used Any Other Forms Of Tobacco Or Nicotine? No [email or web address] Information not available 01/20/2023 Sex: Unknown Functional Status Question Answer Note LastModified by Organizat ion Details LastModified Time Do you have difficulty walking or climbing stairs? No Information not available 06/10/2023 Are you able to walk? YESWOREST [email or web address] Information not available 03/09/2021 Are you able to care for yourself? Yes Information not available 06/10/2023 What is your exercise level? Occasional Information not available 03/09/2021 Mental Status None recorded. Family History Relationship Description Onset Age of this Age Resolved Age Notes LastModified by Organization Details LastModified Time Father Coronary atherosclero sis [email or web address] Not available 10/08 11:16:34 Father Heart disease 78 [email or web address] Not available 10/08 11:16:34 Sister Malignant neoplasm of skin [email or web address] Not available 10/08 11:16:34 Sister Malignant tumor of breast 59 [email or web address] Not available 10/08 11:16:34 Mother Malignant tumor of breast 59 [email or web address] Not available 10/08 11:16:34 Brother Heart disease 75 [email or web address] Not available 10/08 11:16:34 Brother Malignant tumor of lung 71 [email or web address] Not available 10/08 11:16:34 Brother Diabetes mellitus [email or web address] Not available 10/08 11:16:34 Medical History Condition Response Allergies (Food, seasonal, environmental ) N Other N Drug/Latex Allergies/Reactions N Blood Transfusion N Breast Cancer N Dermatologic Disorders N Lung Disease N Defects or Inherited Disease N Breast Problem N Gestational Diabetes N Hematologic disorders N Anesthesia Complications N History of STI N Deep Vein Thrombosis N Polycystic ovary syndrome N Anxiety Disorder N Autoimmune disease N Arthritis N Polyps N Infertility N Acid Reflux (GERD) N History of abnormal pap N Cancer N Varicosities N Stroke N Neurologic/Epilepsy N Endometriosis N High Cholesterol N Fibromyalgia N Headaches N Kidney Disease N Heart Problems N Thyroid Problems N Kidney or Bladder Problems N GI Problems Y Eating Disorder N Anemia N Art (IVF or FET) N Psychiatric Illness N Ovarian Cancer N Diabetes N Pulmonary (TB, Asthma) N Hepatitis/Liver Disease N No Past Medical History N Eczema N Urinary Tract Infection N Abuse/Domestic Violence N Asthma N Trauma/Violence N Depression/ depression N Heart Disease N Pre-Eclampsia N Hypertension N Osteoporosis Y Thrombophilias N Gynecological History Statement/Question Response Abnormal Pap N Date of Last Mammogram 04/13/2023 Date of LMP 07/03/1994 Y On BCP's at Conception? N STIs/STDs N HPV Vaccine N 03/18/2021 Current Control Method Menopause Age at First Child 20 If Post Menopausal, Age at Menopause 44 Date of Last Colonoscopy 04/01/2019 Most Recent Bone Density 08/07/2023 Sexually Active? Y Menses Monthly N Date of DEXA bone scan 08/07/2023 Age of first menstrual cycle 13 Date of Last Pap Smear 06/12/2023 Sexual Problems? Y LMP Approximate Desired Control Method Hysterectom y 03/03/2019 N Obstetrics History GPAL:G 2 P 2 0 0 2 Type Value Full Term 2 Living 2 Total 2 Past Encounters Encounter ID Performer Location Encounter Start Date Encounter Closed Date Diagnosis/Indication Diagnosis SNOMED-CT Code Diagnosis ICD10 Code Diagnosis Note [id number] Savana Leos [facility] [address] [address] 03/09/2021 09:37:42 03/09/2021 10:49:14 Gynecologic examination [id number] Z01.419 Take Calcium with Vitamin D 12-1500mg daily. Do monthly self breast exams. It is advised to get annual flu shot in the fall and she could obtain at [facility] or [facility]. If you haven't received the Tdap vaccine in the last 10 years you should obtain one as well. Have mammogram yearly, bone density every 2-3 years and colonoscop y every 5-10 years depending on findings and history. Engage in daily exercise of low impact aerobic exercise 45-60 minutes 4-5 times weekly. Avoid tobacco and illicit drugs as well as using moderation with alcohol intake less than 1-2 8 oz beverages daily. This lifestyle behavior pattern will lead to less health conditions and longer life span. If BMI greater than 25 weight watchers or dietary consult advised. Questions have been answered. Patient appears to understand instructio ns, but if you have any further questions call or respond to this email USPSTF recommends against screening for cervical cancer in women older than 65yo who have had adequate prior screening & are not otherwise at high risk for cervical cancer. Mammo orderedCol on UTD per PCPDexa orderedNo issues or concerns Family his tory of malignant neoplasm of breast in first degree relative [id number] Z80.3 Postmenopa usal osteopenia [id number] M85.80 [id number] Derek Alston MD [facility] [address] [address] 01/20/2023 09:19:34 01/20/2023 16:23:06 Prolapse of female genital organs 74071291 N81.9 this patient is a 72-year-ol d female who presents for pelvic organ prolapse. She has a bulge at the introitus of the vagina. It has bled. It is getting irritated with walking. She has considerab le standing and walking in her job. She gets irritation and shaving of the bulge out of the vagina. She reports urinary incontinen ce. she loses urine when she coughs, laughs, sneezes. She is wearing a panty liner. She was examined. we could not reproduce the significan t prolapse that she spoke of. There was minimal descent of the vaginal apex, subclinica l cystocele and rectocele. She was lying down for exam. We discussed treatments . We discussed pessary. Discussed surgical consult for Urogynecol ogy. She will see Urogynecol ogy. She was not interested in pessary. We spent over 40 minutes face-to-fa ce. More than 50% was counseling . We will make the referral to the urogynecol ogy group. Dr. Merrick Torres Female str ess incontinence [id number] N39.3 [id number] Derek Alston MD [facility] [address],[facility] [place] [address] 06/10/2023 10:56:12 06/10/2023 11:43:10 Gynecologic examination [id number] Z01.419 Annual gynecologi jarrod exam performed. Patient will come back in a year unless there are new symptoms. Suggest Calcium with Vitamin D if not eating in diet. Patient advised to get annual flu shot. Recommend yearly physicals and preform monthly breast exams. Genetic testing is available for patients with family history of cancer. Engage in safe sexual practices, use condoms. Encouraged to have daily exercise. Avoid tobacco and illicit drugs, moderation of alcohol. If BMI greater than 25 dietary consult advised. If you have any questions please call or email. mammogram- done colon cancer screening - done DEXA scan- ordered today Pap smear- done today laboratory evaluation - done with primary [id number] Derek Alston MD [facility] [address] [address] 10/09/2023 10:50:47 10/09/2023 11:59:42 Osteopenia [id number] M85.80 72-year-ol d female who presents for follow-up on DEXA scan. She has osteopenia that exceeds the threshold for risk. She should be treated medically. She has active ulcer disease. She should be treated by an expert. I am unfamiliar with the medication s used in this context. To refer to endocrinol ogy. Explained the results. Explained the basic treatments . Discussed referral. [id number] Derek Alston MD [facility] [address],[facility] [place] [address] 04/26/2024 10:44:24 04/29/2024 10:13:11 Prolapse of female genital organs [id number] N81.9 patient is 73-year-ol d female presents for surgery consult. She has pelvic organ prolapse. Urogynecol millicent and myself of agreed to perform robotic assisted supracervi jarrod hysterecto my with bilateral salpingo-o ophorectom y. The patient understand s the procedure. The procedure was described to the patient in great detail. the patient also understand s the risks. The risks were also explained in detail. She understand s that injuries May occur during surgery. She understand s these injuries can result in hospitaliz ation, more surgery, and severe illness. She understand s there is risk of hemorrhage and infection. I spent over 30 minutes on the patient's care in total. Health Concerns Section Related Observation LastModified by Organization Detai ls LastModified Time None Recorded Concern Status LastModified by Organization Details LastModified Time None Recorded Advance Directives Directive None Recorded Payers Encounter Date Sequence Insurance Name Policy Number Policy [place] Covered Member ID [place] Member ID Guarantor Name 03/09/2021 1 [place] Marah L Briner [id number] Marah L Briner 03/09/2021 2 Imaging Advantage Marques Briner [id number] Marah L Briner 01/20/2023 1 [place] Marah L Briner [id number] Marah L Briner 01/20/2023 2 [employer] [facility] [employer] Marah L Briner [id number] Marah L Briner 06/10/2023 1 [employer] [id number] Marah Briner [id number] Marah L Briner 10/09/2023 1 [employer] [id number] Marah Briner [id number] Marah L Briner 04/26/2024 1 [employer] [id number] Marah Briner [id number] Marah L Briner Notes Date Note Type Note Provider Name and Address Organization Details Recorded Time 03/09/2021 text/html Annual Acid Filler Post-MenopausalRepo rted byJanie bal Symptoms:no menopausal symptoms; normal vaginal lubrication Vaginal Bleeding:history of menopause having occurred; no history of post menopausal bleeding Urinary Symptoms:no hematuria; no incontinence; no nocturia; no urinary frequency Vulva:no genital lesion; no vulvar atrophy Vagina:normal vaginal discharge; no vaginal atrophy Breast:no breast lump; no nipple discharge; no breast pain Sexual Complaints:no sexual complaints Psychological Symptoms:no depression; no anxiety Preventive Measures:encourage regular mammograms starting age 40; encourage self breast examination; encourage regular exercise; encourage no tobacco use; needs to schedule mammogram; history of recent colonoscopy; needs to schedule bone density Savana Leos, [facility] [address], [place], [address], [facility] 03/09/2021 10:27:49 01/20/2023 text/html this patient is a 72-year-old female who presents for pelvic organ prolapse. She has a bulge at the introitus of the vagina. It has bled. It is getting irritated with walking. She has considerable standing and walking in her job. She gets irritation and shaving of the bulge out of the vagina. She reports urinary incontinence. she loses urine when she coughs, laughs, sneezes. She is wearing a panty liner. She was examined. we could not reproduce the significant prolapse that she spoke of. There was minimal descent of the vaginal apex, subclinical cystocele and rectocele. She was lying down for exam. We discussed treatments. We discussed pessary. Discussed surgical consult for Urogynecology. She will see Urogynecology. She was not interested in pessary. We spent over 40 minutes [id number]. More than 50% was counseling. We will make the referral to the urogynecology group. Dr. Merrick Alston MD [address], [place], [address], [facility] 01/20/2023 16:00:52 06/10/2023 text/html Annual GYNReport ed bypatient.History:n o gynecologic complaints Urinary symptoms:No hematuria;Stress incontinence Vulva:No genital lesion Vagina:Normal vaginal discharge Breast:No breast pain; No breast lump Sexual complaints:No sexual complaints; No pain during intercourse Menopausal Symptoms:No menopausal symptoms Psychological symptoms:No depression; No anxiety Preventive measures:Encourage self breast examination; Encourage regular exercise Derek Alston MD [address], [place], [address], [facility] 06/10/2023 11:40:41 10/09/2023 text/html 72-year-old fema dmitriy who presents for follow-up on DEXA scan. She has osteopenia that exceeds the threshold for risk. She should be treated medically. She has active ulcer disease. She should be treated by an expert. I am unfamiliar with the medications used in this context. To refer to endocrinology. Explained the results. Explained the basic treatments. Discussed referral. Derek Alston MD [address], [place], [address], [facility] 10/09/2023 11:56:29 04/26/2024 text/html patient is 73-year-old female presents for surgery consult. She has pelvic organ prolapse. Urogynecology and myself of agreed to perform robotic assisted supracervical hysterectomy with bilateral salpingo-oophorecto my. The patient understands the procedure. The procedure was described to the patient in great detail. the patient also understands the risks. The risks were also explained in detail. She understands that injuries May occur during surgery. She understands these injuries can result in hospitalization, more surgery, and severe illness. She understands there is risk of hemorrhage and infection. I spent over 30 minutes on the patient's care in total. Derek Alston MD [address], [place], [address], [facility] 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 Status 03/09/20 21 1 CLOSED Fetus Data First Name Last Name Admitted to NICU Weight (g) Sex Living Outcome Pediatric Complications Fetus ID Race Codes Race Delivery Type 3345.24 1 M Full Term [id number] Vaginal Delivery Josh Calculation Initial Josh Date Initial Exam Date Initial Exam Provider Initial Ultrasound Date Last Menstrual Period Date Ultra Sound Weeks Gestation 0 Eighteen To Twenty Week Josh Update Ultra Sound Date Fundal Height At Umbil Quickening Date Ultra Sound Latest Weeks Gestation Final Josh Confirmed By Final Josh Confirmed Date Final Josh Date Ultra Sound Latest Days Gestation 0 0 Menstrual History Last Menstrual Date Menses Monthly On Bcp Conception Prior Menses Frequency Hcg Plus Date Menarche Onset Age Delivery Information Delivery Date Delivery Type Labor Anesthesia Weeks Gestation Incision Type Labor Labor Length Hrs Delivered By Post Complications Tubal Sterilization Discharge Date Comments 6 40 Discharge Information Feeding Method Contraceptive Method Maternal HG B and HCT Levels Ob Episode Information Episode Created Date Number of Fetuses Patient Bloodtype Patient rh Status Prepregnancy Weight lbs Domestic Partner Domestic Partner Phone Father Name Head [employer] Teacher Status 03/09/20 21 1 CLOSED Fetus Data First Name Last Name Admitted to NICU Weight (g) Sex Living Outcome Pediatric Complications Fetus ID Race Codes Race Delivery Type 3742.13 4 F Full Term [id number] Vaginal Delivery Josh Calculation Initial Josh Date Initial Exam Date Initial Exam Provider Initial Ultrasound Date Last Menstrual Period Date Ultra Sound Weeks Gestation 0 Eighteen To Twenty Week Josh Update Ultra Sound Date Fundal Height At Umbil Quickening Date Ultra Sound Latest Weeks Gestation Final Josh Confirmed By Final Josh Confirmed Date Final Josh Date Ultra Sound Latest Days Gestation 0 0 Menstrual History Last Menstrual Date Menses Monthly On Bcp Conception Prior Menses Frequency Hcg Plus Date Menarche Onset Age Delivery Information Delivery Date Delivery Type Labor Anesthesia Weeks Gestation Incision Type Labor Labor Length Hrs Delivered By Post Complications Tubal Sterilization Discharge Date Comments 1 40 Discharge Information Feeding Method Contraceptive Method Maternal HG B and HCT Levels
--- OUTSIDE RECORDS SUMMARY | 2024-09-30 17:23 | XMS_ITS | CONTINUITY OF CARE DOCUMENT ---
Author Name bernradino, bernardino Address Unknown Organization [facility] Address [address] [place] [address] Phone [phone] Care Team Providers Care Motor Coach Driver Name Role Phone Daniel LOVETT, Cj Unavailable Aliyah London MD Unavailable [phone] Aliyah London MD Unavailable PROBLEMS Condition Status Date Provider Notes MITRAL STENOSIS completed - Cj Sanchez MD SYNCOPE AND COLLAPSE active Cj Quiros CP-02/07 ECHO EF 70, NUC ST D EP, CAROTID NEG active ? Cj Sanchez MD MITRAL REGURGITATION, MILD active Cj fraser MD EMPHYSEMA completed - Dawson Casanova MD Family History of Hypertension: active ? Matty Casanova MD Other symptoms involving cardiovascular system active Dawson Casanova MD Edema active Cj Sanchez MD Varicose veins, lower extremities active Cj Sanchez MD VENOUS INSUFFICIENCY active Dawson Casanova MD ENCOUNTERS Date Type Provider Location Encounter Diag nosis - In-person encounter Office Visit Cj Sanchez MD [facility] - In-person encounter Office Visit Dawson Casanova MD [facility] - In-person encounter Office Visit Dawson Casanova MD [facility] - In-person encounter Office Visit Dawson Casanova MD [facility] - In-person encounter Office Visit Dawson Casanova MD [facility] VENOUS INSUFFICIENCY - In-person encounter Office Visit Cj Sanchez MD [facility] - In-person encounter Office Visit Cj Sanchez MD [facility] EdemaVaricose veins, lower extremities - In-person encounter Office Visit Cj Sanchez MD [facility] - In-person encounter Office Visit Dawson Casanova MD [facility] EMPHYSEMAFamily History of Hypertension:Other symptoms involving cardiovascular system - In-person encounter Office Visit Cj Sanchez MD [facility] - In-person encounter Office Visit Cj Sanchez MD [facility] MITRAL STENOSISCP-02/07 ECHO EF 70, NUC ST DEP, CAROTID NEGMITRAL REGURGITATION, MILD - In-person encounter Office Visit Cj Sanchez MD [facility] SYNCOPE AND COLLAPSECP-02/07 ECHO EF 70, NUC ST DEP, CAROTID NEG VITAL SIGNS Date Observation Value Provider Body Mass Index (Ratio) 21.89 kg/m2 Dawit Sanchez MD blood pressure, cuff size regular Ms malick Suazo blood pressure, diastolic 60 mm[Hg] Ms malick Suazo blood pressure, systolic 118 mm[Hg] [facility] colin Suazo oxygen saturation, oximetry 99 % Julia Suazo respiratory rate E&M 18 /min Eunice Suazo pulse rate 73 /min Julia quiros weight E&M 152.6 [lb_av] Julia Salgado nd height E&M 70 [in_i] Julia quiros Body Mass Index (Ratio) 24.25 kg/m2 Matty Casanova MD blood pressure, diastolic 69 mm[Hg] To nsha Helms blood pressure, systolic 116 mm[Hg] [facility] oxygen saturation, oximetry 96 % [facility] respiratory rate E&M 16 /[facility]min [facility] weight E&M 169 [lb_av] [facility] height E&M 70 [in_i] [facility] Body Mass Index (Ratio) 23.67 kg/m2 Matty Casanova MD blood pressure, cuff size regular Cy remi Garcia blood pressure, diastolic 70 mm[Hg] Cy scottarmin Jose blood pressure, systolic 108 mm[Hg] Arlet preciousarmin Garcia respiratory rate E&M 16 /min Jacque Garcia pulse rate 73 /min Jacque Ortiz l oxygen saturation, oximetry 99 % Jacquepebbles Garcia weight E&M 165 [lb_av] Jacque Campbel l height E&M 70 [in_i] Jacque Campbel l Body Mass Index (Ratio) 23.67 kg/m2 Matty Casanova MD blood pressure, cuff size regular Cr roger Pete blood pressure, diastolic 70 mm[Hg] Cr roger Pete blood pressure, systolic 110 mm[Hg] Elida Pete oxygen saturation, oximetry 98 % Madelyn Pete respiratory rate E&M 17 /min Madelyn Pete pulse rate 72 /min Madelyn goldsmith weight E&M 165 [lb_av] Madelyn goldsmith height E&M 70 [in_i] Madelyn goldsmith Body Mass Index (Ratio) 23.82 kg/m2 Matty Casanova MD blood pressure, cuff size regular Kr woodrowlouie Félix pulse rate 73 /min Maylin Rogers oxygen saturation, oximetry 98 % Maylin Heard blood pressure, diastolic 70 mm[Hg] Tien Heard blood pressure, systolic 110 mm[Hg] Kevin Heard respiratory rate E&M 18 /min Maylin Rogers weight E&M 166 [lb_av] Maylin Rogers height E&M 70 [in_i] Maylin Rogers Body Mass Index (Ratio) 23.67 kg/m2 Dawit Sanchez MD blood pressure, diastolic 82 mm[Hg] Raul aracelis Self blood pressure, systolic 118 mm[Hg] Mavis sp Self oxygen saturation, oximetry 98 % Huma Self pulse rate 68 /min Huma Hamlin weight E&M 165 [lb_av] Humaaracelis Martinez- Boubacar height E&M 70 [in_i] Huma Hamlin Body Mass Index (Ratio) 23.67 kg/m2 Dawit Sanchez MD blood pressure, resting No Brit makayla Block blood pressure, diastolic 80 mm[Hg] Br ittany Block blood pressure, systolic 116 mm[Hg] Jenelle ttany Block oxygen saturation, oximetry 98 % Joy Block respiratory rate E&M 16 /min Brittan y Block pulse rate 68 /min Joy Block weight E&M 165 [lb_av] Joy Block height E&M 70 [in_i] Joy Block blood pressure, diastolic 80 mm[Hg] Leonid Pruitt blood pressure, systolic 116 mm[Hg] Megan Pruitt pulse rate 74 /min Manny rice oxygen saturation, oximetry 98 % Manny Pruitt respiratory rate E&M 18 /min Nikky Pruitt Body Mass Index (Ratio) 22.41 kg/m2 Brenna Pruitt weight E&M 156.2 [lb_av] Manny post blood pressure, diastolic 80 mm[Hg] Leonid Pruitt blood pressure, systolic 140 mm[Hg] Megan Pruitt pulse rate 77 /min Manny rice oxygen saturation, oximetry 98 % Manny Pruitt respiratory rate E&M 18 /min iNkky Pruitt Body Mass Index (Ratio) 22.18 kg/m2 Brenna Pruitt weight E&M 154.6 [lb_av] Manny post height E&M 70 [in_i] Manny rice oxygen saturation, oximetry 99 % Randi Brooks [place] blood pressure, diastolic 73 mm[Hg] Dawn aguilarkanu Brooks [place] blood pressure, systolic 112 mm[Hg] Wade Brooks [place] pulse rate 76 /min Randi Brooks [place] respiratory rate E&M 16 /min Randi Brooks [place] weight E&M 145 [lb_av] Randi Brooks [place] blood pressure, diastolic 97 mm[Hg] Abdiel Nunez RN blood pressure, systolic 108 mm[Hg] Jorge Nunez RN pulse rate 78 /min Jorge Nunez RN oxygen saturation, oximetry 98 % Jorge Nunez RN respiratory rate E&M 20 /min Jorge girard RN weight E&M 151 [lb_av] Jorge Nunez RN blood pressure, diastolic 89 mm[Hg] Abdiel Nunez RN blood pressure, systolic 143 mm[Hg] Jorge Nunez RN pulse rate 76 /min Jorge Nunez RN oxygen saturation, oximetry 99 % Jorge Nunez RN respiratory rate E&M 18 /min Jorge girard RN weight E&M 152 [lb_av] Jorge Nunez RN ALLERGIES No Known Drug Allergies HISTORY OF MEDICATION USE Medication Status Instructions Dates Provider Indications Com ments aspirin 81 mg tablet,delayed release (DR/EC) active 1 tablet by mouth once a day 0 Yayo Sam pantoprazole 20 mg tablet,delayed release (DR/EC) active 1 by mouth once a day 9 Cj Sanchez MD AMBIEN 10 MG ORAL TABLET completed 07/06 TAB. AT BEDTIME - 9 Cj Sanchez MD JONY-PEG 250 MG ORAL TABLET completed once daily - 8 Manny Pruitt MULTIVITAMINS ORAL CAPSULE active 1 tablet once a day Jorge Nunez RN ASPIRIN 81 MG ORAL TABLET completed ONE TAB. DAILY - 8 Randi Brooks MA LUNESTA 3 MG ORAL TABLET completed one tab hs - 8 Manny Pruitt SOCIAL HISTORY Date Observation Value Provider social history E&M Marital Statu s: L sam with family/friends J ob Status: Employed full-time E thnicity: Smoking History: P [place] has never smoked. Cj Sanchez MD social history reviewed E&M revi ewed - no changes required Cj Sanchez MD physical exercise, f requency, days per week yes Julia Suazo caffeine use, averag e drinks per day yes Julia Suazo smoking status Never smoker Julia Auguste number of grandchildren Dawson Casanova MD U андрей Casanova MD social history E&M Marital Statu s: L sam with family/friends J ob Status: Employed full-time E thnicity: S moking History: P [place] has never smoked. Dawson Casanova MD social history reviewed E&M revi ewed - no changes required Dawson Casanova MD social history E&M Marital Statu s: Juan vargas with family/friends J ob Status: Employed full-time E thnicity: Smoking History: P riri has never smoked. Dawson Casanova MD social history reviewed E&M revi ewed - no changes required Dawson Casanova MD physical exercise, f requency, days per week yes Jacque Garcia caffeine use, averag e drinks per day yes Jacque Garcia smoking status Never smoker Jacque Donatoaustin storey social history E&M Marital Statu s: Juan vargas with family/friends J ob Status: Employed full-time E thnicity: Smoking History: P riri has never smoked. Dawson Casanova MD social history reviewed E&M nevaeh ewed - no changes required aDwson Casanova MD smoking status Never smoker Madelyn Lowe [facility] social history E&M Marital Statu s: Juan vargas with family/friends J ob Status: Employed full-time E thnicity: Smoking History: P riri has never smoked. Dawson Casanova MD social history reviewed E&M revrad ewed - no changes required Dawson Casanova MD physical exercise, f requency, days per week yes Mayiln Heard alcohol use, average drinks per day none Maylin Heard alcohol use no Maylin Heard caffeine use, averag e drinks per day yes Maylin Heard drug use none Maylin Rogersby smoking status Never smoker Maylin Heard social history E&M Marital Statu s: Juan vargas with family/friends J ob Status: Employed full-time E thnicity: Smoking History: P riri has never smoked. Cj Sanchez MD physical exercise, f requency, days per week yes Huma Self alcohol use, average drinks per day none Huma Self alcohol use no Huma Hamlin caffeine use, averag e drinks per day yes Huma Self drug use none Huma Hamlin smoking status Never smoker Huma Abdimarianna Anderson social history reviewed E&M revi ewed - no changes required Huma Self social history E&M Marital Statu s: Juan vargas with family/friends J ob Status: Employed full-time E thnicity: Smoking History: Radhika menezes has never smoked. Cj Sanchez MD social history reviewed E&M revi ewed - no changes required jC Sanchez MD physical exercise, f requency, days per week yes Joy [employer] alcohol use, average drinks per day none Joy [employer] alcohol use no Joy [employer] caffeine use, averag e drinks per day yes Joy [employer] drug use none Joy [employer] smoking status Never smoker [facility] social history reviewed E&M revi ewed - no changes required Cj Sanchez MD physical exercise, f requency, days per week yes Manny Pruitt alcohol use, average drinks per day none Manny Pruitt alcohol use no Manny rice caffeine use, averag e drinks per day yes Manny Pruitt drug use none Manny rice smoking status Never smoker Manny Barnett alcohol use no Dawson Casanova MD social history reviewed E&M revi ewed - no changes required Dawson Casanova MD physical exercise, f requency, days per week yes Manny Pruitt alcohol use, average drinks per day none Manny Pruitt caffeine use, averag e drinks per day yes Manny Pruitt drug use none Manny rice smoking status Never smoker Manny Barnett social history reviewed E&M reviewed Cj Sanchez MD social history reviewed E&M reviewed Jorge Nunez RN social history E&M Marital Statu s: Juan vargas with family/friends J ob Status: Employed full-time E thnicity: Cj Sanchez MD drug use none Cj Quiros social history reviewed E&M reviewed Cj Sanchez MD physical exercise, f requency, days per week yes [employer] caffeine use, averag e drinks per day yes [employer] alcohol use, average drinks per day none [employer] smoking status Non-smoker [employer] MENTAL STATUS Date Observation Value Provider assessment of judgme nt and insight E&M Alert and oriented to time, place and person. Mood and affect are normal. Cj Sanchez MD assessment of judgme nt and insight E&M Alert and oriented to time, place and person. Mood and affect are normal. Jorge Nunez RN assessment of judgme nt and insight E&M Alert and oriented to time, place and person. Mood and affect are normal. Jorge Nunez RN FAMILY HISTORY Family Member Condition Mother Family History of Hy pertension: Father Family History of Co ronary Artery Disease: Full Brother Family History of Di abetes: INSURANCE PROVIDERS Payer name Policy type / Coverage type [id number] OPEN ACCESS Other [id number] [employer] [place] [employer] Medicare [id number] ADVANCE DIRECTIVES Name Date LIVING WILL ON FILE TREATMENT PLAN Date Name Performer [id number],B, Cj downey MD [id number],S, Cj downey MD [id number],S, Cj downey MD [id number],BCj MD Cardiology Cj Sanchez MD Cardiology Cj Sanchez MD Cardiology Cj Sanchez MD Cardiology Cj Sanchez MD Cardiology:No reoccurance Dawson Casanova MD Cardiology:Pt is s/p Venaseal to the L GSV. Her sx have improved. She will continue care with Dr. Daniel Casanova MD Cardiology Dawson Casanova MD Cardiology follow up :Significant venous insufficiency b/l on ultrasound 12/25/18. Will arrange for her to have VenaSeal. She has worn compression socks for years and still has an ache in her L thigh region. Dawson Casanova MD Cardiology follow up Dawson teague MD Cardiology follow up Dawson teague MD Cardiology Dawson Casanova MD Cardiology Dawson Casanova MD Cardiology:Has been compliant with compression stockings and has noted improvement in LE pain. Recommend that she continue wearing compression stockings. If at some point, she develops enough discomfort in spite of the compression socks, then we can close the vein for comfort reasons. Dawson Casanova MD Cardiology:As above. Dawson teague MD Cardiology:Has signi ficant venous insufficiency of the GSV/LSV b/l . Recommend that she use compression stockings for both symptom relief and if she continues to have symptoms after 2 mo. she would be a candidate for closure of the GSV. Dawson Casanova MD Cardiology Cj Sanchez MD Cardiology Cj Sanchez MD Cardiology Cj Sanchez MD Cardiology:Will have her see Dr Casanova to see if EVLT would help LLE pain. Cj Sanchez MD Cardiology Cj Sanchez MD Cardiology Cj Sanchez MD Cardiology Cj Sanchez MD Cardiology Cj Sanchez MD Cardiology Cj Sanchez MD Cardiology Cj Sanchez MD Cardiology Dawson Casanova MD Cardiology Dawson Casanova MD Cardiology:Had chest discomfort and would like to risk stratify her with stress nuclear and an echo. Dawson Casanova MD FU- letter fxd: B P today: 112/73 Prior BP: 108/97 (03/25/2008) E chocardiogram: The left ventricular chamber size is normal. Normal left ventricular wall thickness.Normal left v entricular function. LV EF is estimated at 70%. M inimal mitral regurgitation. M inimal tricuspid regurgitation. (02/26/2008) N uclear Stress Findings: 1. Abnormal Wilber protocol exercise tolerance test showing ST segment depression with exercise. 2 . Normal left ventricular size and function with a calculated ejection fraction of 78%. 3 . Myocardial scintigraphy is normal without evidence for previous myocardial infarction or reversible ischemia 4 . On the basis of normal perfusion imaging, the ST segment response with exercise is considered falsely positive for ischemia. (02/26/2008) Cj Sanchez MD FU- letter fxd: T he following medications were removed from the medication list: Aspirin 81 Mg Tabs (Aspirin) ..... One tab. daily BP today: 112/73 Prior BP: 108/97 (03/25/2008) N uclear Stress Findings: 1. Abnormal Wilber protocol exercise tolerance test showing ST segment depression with exercise. 2 . Normal left ventricular size and function with a calculated ejection fraction of 78%. 3 . Myocardial scintigraphy is normal without evidence for previous myocardial infarction or reversible ischemia 4 . On the basis of normal perfusion imaging, the ST segment response with exercise is considered falsely positive for ischemia. (02/26/2008) C arotid Doppler/Duplex: LESS THAN 50 % STENOSIS OF THE INTERNAL CAROTID ARTERIES BILATERALLY. (02/26/2008) E chocardiogram: The left ventricular chamber size is normal. Normal left ventricular wall thickness.Normal left v entricular function. LV EF is estimated at 70%. M inimal mitral regurgitation. M inimal tricuspid regurgitation. (02/26/2008) Cj Sanchez MD FU- letter fxd: T he following medications were removed from the medication list: Aspirin 81 Mg Tabs (Aspirin) ..... One tab. daily BP today: 112/73 Prior BP: 108/97 (03/25/2008) N uclear Stress Findings: 1. Abnormal Wilber protocol exercise tolerance test showing ST segment depression with exercise. 2 . Normal left ventricular size and function with a calculated ejection fraction of 78%. 3 . Myocardial scintigraphy is normal without evidence for previous myocardial infarction or reversible ischemia 4 . On the basis of normal perfusion imaging, the ST segment response with exercise is considered falsely positive for ischemia. (02/26/2008) E chocardiogram: The left ventricular chamber size is normal. Normal left ventricular wall thickness.Normal left v entricular function. LV EF is estimated at 70%. M inimal mitral regurgitation. M inimal tricuspid regurgitation. (02/26/2008) Cj Sanchez MD office visit: B P today: 108/97 Prior BP: 143/89 (02/19/2008) E chocardiogram: The left ventricular chamber size is normal. Normal left ventricular wall thickness.Normal left v entricular function. LV EF is estimated at 70%. M inimal mitral regurgitation. M inimal tricuspid regurgitation. (02/26/2008) N uclear Stress Findings: 1. Abnormal Wilber protocol exercise tolerance test showing ST segment depression with exercise. 2 . Normal left ventricular size and function with a calculated ejection fraction of 78%. 3 . Myocardial scintigraphy is normal without evidence for previous myocardial infarction or reversible ischemia 4 . On the basis of normal perfusion imaging, the ST segment response with exercise is considered falsely positive for ischemia. (02/26/2008) Cj Sanchez MD office visit: H er updated medication list for this problem includes: Aspirin 81 Mg Tabs (Aspirin) ..... One tab. daily BP today: 108/97 Prior BP: 143/89 (02/19/2008) N uclear Stress Findings: 1. Abnormal Wilber protocol exercise tolerance test showing ST segment depression with exercise. 2 . Normal left ventricular size and function with a calculated ejection fraction of 78%. 3 . Myocardial scintigraphy is normal without evidence for previous myocardial infarction or reversible ischemia 4 . On the basis of normal perfusion imaging, the ST segment response with exercise is considered falsely positive for ischemia. (02/26/2008) E chocardiogram: The left ventricular chamber size is normal. Normal left ventricular wall thickness.Normal left v entricular function. LV EF is estimated at 70%. M inimal mitral regurgitation. M inimal tricuspid regurgitation. (02/26/2008) Cj Sanchez MD office visit: H er updated medication list for this problem includes: Aspirin 81 Mg Tabs (Aspirin) ..... One tab. daily BP today: 108/97 Prior BP: 143/89 (02/19/2008) N uclear Stress Findings: 1. Abnormal Wilber protocol exercise tolerance test showing ST segment depression with exercise. 2 . Normal left ventricular size and function with a calculated ejection fraction of 78%. 3 . Myocardial scintigraphy is normal without evidence for previous myocardial infarction or reversible ischemia 4 . On the basis of normal perfusion imaging, the ST segment response with exercise is considered falsely positive for ischemia. (02/26/2008) C arotid Doppler/Duplex: LESS THAN 50 % STENOSIS OF THE INTERNAL CAROTID ARTERIES BILATERALLY. (02/26/2008) E chocardiogram: The left ventricular chamber size is normal. Normal left ventricular wall thickness.Normal left v entricular function. LV EF is estimated at 70%. M inimal mitral regurgitation. M inimal tricuspid regurgitation. (02/26/2008) Cj Sanchez MD initial visit: H er updated medication list for this problem includes: Aspirin 81 Mg Tabs (Aspirin) ..... One tab. daily Orders: S tress Test - Nuclear (27333) BP today: 143/89 Prior BP: / () Cj Sanchez MD initial visit: B P today: 143/89 Prior BP: / () Cj Sanchez MD initial visit: H er updated medication list for this problem includes: Aspirin 81 Mg Tabs (Aspirin) ..... One tab. daily Orders: C omplete Echo (CPT-08833) C arotid Duplex Bilateral (CPT-83689) BP today: 143/89 Prior BP: / () Cj Sanchez MD Date Name Venous Doppler Unila teral LLE VenaSeal Complete Echo STR - Nuclear Carotid Duplex Bilat eral Complete Echo Stress Test - Nuclea r HISTORY OF PROCEDURES Procedure Date Procedure Name Provider Procedure Notes S tatus EKG Cj Sanchez MD complete d SNOMED-CT: 046417192008996 Current Medications Documented Cj Sanchez MD completed Stress EKG Alva goldsmith MD completed Cardiolite, 2 units Cedric Crooks MD completed SPECT Images Cedric Crooks MD com pleted SNOMED-CT: [id number] Physical Exam, Performed: Pulse Exam of Foot Dawson Casanova MD completed EKG Dawson Casanova MD completed SNOMED-CT: [id number] Current Medications Documented Dawson Casanova MD completed
[2024-09-30 17:33] VITALS: PULSE 60; O2SAT 99
[2024-09-30 17:36] VITALS: BP 137/76; PULSE 65; RESP 16; O2SAT 100
--- OUTSIDE RECORDS SUMMARY | 2024-09-30 17:57 | XMS_ITS | CONTINUITY OF CARE DOCUMENT ---
Author Name bernardino, bernardino Address Unknown Organization [facility] Address [address] [place] [address] Phone [phone] Care Team Providers Care Foam Fabricator Name Role Phone Daniel LOVETT, Cj Unavailable Aliyah London MD Unavailable [phone] Aliyah London MD Unavailable PROBLEMS Condition [...] In-person encounter Office Visit Dawson Casanova MD [facility] - In-person encounter Office Visit Dawson Casanova MD [facility] - In-person encounter Office Visit Dawson Casanova MD [facility] - In-person encounter Office Visit Dawson Casanova MD [facility] VENOUS INSUFFICIENCY - In-person encounter Office Visit Cj Sanchez MD [facility] - In-person encounter Office Visit Cj Sanchez MD [facility] Office EdemaVaricose veins, lower extremities - In-person encounter Office Visit Cj Sanchez MD [facility] - In-person encounter Office Visit Dawson Casanova MD [facility] EMPHYSEMAFamily History of Hypertension:Other symptoms involving cardiovascular system - In-person encounter Office Visit Cj Sanchez MD [facility] - In-person encounter Office Visit Cj Sanchez MD [facility] MITRAL STENOSISCP-02/07 ECHO EF 70, NUC ST DEP, CAROTID NEGMITRAL REGURGITATION, MILD - In-person encounter Office Visit Cj Sanchez MD [facility] SYNCOPE AND COLLAPSECP-02/07 ECHO EF 70, NUC ST DEP, CAROTID NEG VITAL SIGNS Date Observation Value Provider Body Mass Index (Ratio) 21.89 kg/m2 Dawit Sanchez MD blood pressure, cuff size regular Wi malick Suazo blood pressure, diastolic 60 mm[Hg] Wi malick Suazo blood pressure, systolic 118 mm[Hg] [facility] colin Suazo oxygen saturation, oximetry 99 % Julia Suazo respiratory rate E&M 18 /min Eunice Suazo pulse rate 73 /min Julia quiros weight E&M 152.6 [lb_av] Julia Salgado nd height E&M 70 [in_i] Julia quiros Body Mass Index (Ratio) 24.25 kg/m2 Matty Casanova MD blood pressure, diastolic 69 mm[Hg] To nsha Helms blood pressure, systolic 116 mm[Hg] [facility] oxygen saturation, oximetry 96 % [facility] respiratory rate E&M 16 /min [facility] pulse rate 71 /min [facility] weight E&M 169 [lb_av] [facility] height E&M 70 [in_i] [facility] Body Mass Index (Ratio) 23.67 kg/m2 [...] /min Nikky Pruitt Body Mass Index (Ratio) 22.18 kg/m2 Brenna Pruitt weight E&M 154.6 [lb_av] Manny post height E&M 70 [in_i] Manny rice oxygen saturation, oximetry 99 % Randi Brooks [place] blood pressure, diastolic 73 mm[Hg] Dawn aguilarkanu [place] blood pressure, systolic 112 mm[Hg] Wade [place] pulse rate 76 /min Randi [place] respiratory rate E&M 16 /min Randi Brooks [place] weight E&M 145 [lb_av] Randi Brooks MA [...] E&M nevaeh ewed - no changes required Dawson Casanova MD smoking status Never smoker Madelyn Lowe [facility] social history E&M Marital Statu s: Juan vargas with family/friends J ob Status: Employed full-time E thnicity: Smoking History: P riri has never smoked. Dawson Casanova MD social history reviewed E&M revrad ewed - no changes required Dawson Casanova MD physical exercise, f requency, days per week yes Maylin Heard alcohol use, average drinks per day [...] f requency, days per week yes Joy Flapshare alcohol use, average drinks per day none [employer] alcohol use no [employer] caffeine use, averag e drinks per day yes [employer] drug use none Joy [employer] smoking status Never smoker [facility] social history reviewed E&M revi ewed [...] Payer name Policy type / Coverage type Kim red constitution party ID [employer] OPEN ACCESS Other [id number] [place] Medicare [id number] ADVANCE DIRECTIVES Name Date LIVING WILL ON FILE TREATMENT PLAN Date Name Performer [id number],B, Cj downey MD [id number],S, Cj downey MD [id number],S, Cj downey MD [id number],BCj MD Cardiology Cj Sanchez MD Cardiology Cj [...] daily Orders: S tress Test - Nuclear (60174) BP today: 143/89 Prior BP: / () Cj Sanchez MD initial visit: B P today: 143/89 Prior BP: / () Cj Sanchez MD initial visit: H er updated medication list for this problem includes: Aspirin 81 Mg Tabs (Aspirin) ..... One tab. daily Orders: C omplete Echo (CPT-20132) C arotid Duplex Bilateral (CPT-96166) BP today: 143/89 Prior BP: / () Cj Sanchez MD Date Name Venous Doppler Unila teral LLE VenaSeal Complete Echo STR - Nuclear Carotid Duplex Bilat eral Complete Echo Stress Test - Nuclea r HISTORY OF PROCEDURES Procedure Date Procedure Name Provider Procedure Notes S tatus EKG Cj Sanchez MD complete d SNOMED-CT: 604642303821215 Current Medications Documented Cj Sanchez MD completed Stress EKG Alva goldsmith MD completed Cardiolite, 2 units Cedric Crooks MD completed SPECT Images Cedric Crooks MD com pleted SNOMED-CT: [id number] Physical Exam, Performed: Pulse Exam of Foot Dawson Casanova MD completed EKG Dawson Casanova MD completed SNOMED-CT: [id number] Current Medications Documented Dawson Casanova MD completed
--- NOTE | 2024-09-30 19:04 | ECG_ITS ---
Test Date: 2024-09-30 19:14:25 Measurements Intervals Lilly Rate: 63 P: 44 OR: 194 QRS: 51 QRSD: 105 T: 56 QT: 465 QTc: 477 Interpretive Statements SINUS RHYTHM ANTEROSEPTAL MYOCARDIAL INFARCTION , OF INDETERMINATE AGE ABNORMAL ECG Compared to ECG 09/30/2024 16:11:10 No significant changes Electronically Signed On 10-01-2024 06:03:12 CDT by Maciej Morales D.O.
[2024-09-30 19:34] LABS: Troponin I < 0.012 ng/mL (0.000-0.034)
[2024-09-30 20:07] VITALS: BP 148/86; PULSE 71; RESP 15; O2SAT 100
== END 2024-09-30 20:08 | disposition home or self-care (01) ==
PROVIDERS: Registered Nurse; Emergency Provider Emergency Medicine; PCP Internal Medicine
DX: R09.1 Pleurisy (principal); Z20.822 Contact with and (suspected) exposure to COVID-19; I34.1 Nonrheumatic mitral (valve) prolapse; K21.9 Gastro-esophageal reflux disease without esophagitis; M16.11 Unilateral primary osteoarthritis, right hip; M85.80 Other specified disorders of bone density and structure, unspecified site; M47.812 Spondylosis without myelopathy or radiculopathy, cervical region; I51.7 Cardiomegaly; R09.89 Other specified symptoms and signs involving the circulatory and respiratory systems; R94.31 Abnormal electrocardiogram [ECG] [EKG]; Z79.82 Long term (current) use of aspirin
CPT/HCPCS: 36415; 71046; 71275; 80053; 83690; 83880; 84484; 85025; 85610; 85730; 87637; 93005; 99284; Q9967

== ENCOUNTER 2025-06-18 12:05 | Outpatient (CLI) | payer MEDICARE, SELFPAY ==
--- NOTE | ~2025-06-18 | MM_ITS ---
EXAMINATION: MM screening tanisha BI w chandler HISTORY: Screening TECHNIQUE: Craniocaudal and mediolateral oblique 3-D tomosynthesis images were obtained and synthetic 2-D images were generated. CAD analysis was submitted and interpreted. COMPARISON: Comparison to multiple prior studies sequentially, with oldest reviewed study dated , 08/31/2016 BREAST PARENCHYMAL COMPOSITION: Not Dense: There are scattered areas of fibroglandular density. FINDINGS: There is no evidence of suspicious mass, calcification, or architectural distortion to suggest malignancy in either breast. IMPRESSION: 1. No mammographic evidence of malignancy. 2. Recommend routine screening mammography in one year. BI-RADS Category 1: Negative Reviewed, dictated and finalized at location A. WARE DEVELOPER
--- OUTSIDE RECORDS SUMMARY | 2025-06-18 14:02 | XMS_ITS | Encounter Summary ---
Author Organization [facility] Address [address] [place] [place] [address] Care Team Providers Care Bench Worker Apprentice Name Role Phone Cosmo Lozoya MD Primary Care Provider [phone] Aliyah London MD Primary Care Provider [phone] Toño Damian MD Primary Care Provider [phone] Reason for Visit * Reason Onset Date Comments Appointment 03/15/2022 Encounter Details Date Type Department Care Team (Late st Contact Info) Description 03/15/2022 Telephone [facility] [address] [place] [id number] Shantal Desai MD [address] [place] [phone] Appointment Social History Tobacco Use Types Packs/Day Years Used Date Smoking Tobacco: Never Assessed Comments Unknown Sex and Gender Information Value Date Recorded Sex Assigned at Not on file Legal Sex Female 4:06 AM CDT Gender Identity Not on file Sexual Orientation Not on file Travel History Travel Start Travel End [facility] 05/05/2025 05/21/2025 documented as of this encounter Miscellaneous Notes * Telephone Encounter - Lacey Damian - 03/15/2022 9:54 AM CDT Pt is calling to verify that we had records/referral and update on scheduling. documented in this encounter Plan of Treatment Upcoming Encounters Date Type Department Care Team (Late st Contact Info) Description 08/21/2025 1:45 PM COMPOSITION PROFESSOR Procedure visit [facility] [facility], [place] [phone] Sofía Wilkins MD [address] [place] [address] [place] [phone] documented as of this encounter Visit Diagnoses Not on filedocumented in this encounter Care Teams Bench Worker Apprentice Relationship Specialty Start Date End Date Cosmo Lozoya MD [facility] [place] [address] PCP - General 05/03/19 01/01/23 Aliyah London [place] [phone] PCP - General Internal Medicine 01/02/23 04/29/25 Toño Damian MD [facility] [address] [place] [address] PCP - General 04/30/25 documented as of this encounter
--- OUTSIDE RECORDS SUMMARY | 2025-06-18 14:02 | XMS_ITS | Clinical Summary ---
Author Organization [facility] Address [address] [facility] [address] Care Team Providers Care Range Aide Name Role Phone Toño Damian MD Primary Care Provider [phone] Source Comments [facility] Affiliates and Associated Physician Practices is amultiple site organization consisting of ambulatory clinics and hospital sitesin [place], [place], [place] and [place]. This disclosure is being madepursuant to the Care Everywhere program and may not contain all information available regarding this patient. Last updated 18.[facility] Allergies No known active allergies Medications * Be aware that medications may not be up to date on this document. Alwaysverify current medications with the patient. Calcium-Magnesi um-Vitamin D (CALCIUM 1200+D3 PO) Active pravastatin (Pravachol) 40 MG tablet Take 1 (one) tablet by mouth once daily Taking differently. Has ceased taking due to cramps. Trying holistic instead. 01/19/2024 Active [place]-3 Fatty Acids (OMEGA 3 FISH OIL PO) Active Multiple Vitamin (MULTIVITAMIN PO) Take 1 capsule by mouth once daily Active pantoprazole EC (Protonix) 40 MG tablet Take 1 (one) tablet by mouth every morning 02/10/2025 Active aspirin EC (Ecotrin) 81 MG tablet Take 1 (one) tablet by mouth once daily Active Menaquinone-7 (VITAMIN K2 PO) Take 100 mg by mouth once daily Active ascorbic acid (Vitamin C) 500 MG tablet Take 2 (two) tablets by mouth once daily Active melatonin 1 MG tablet Take 2 (two) tablets by mouth at bedtime Active Bromelains (BROMELAIN PO) Take 2,000 Units by mouth once daily Active FIBER PO Take by mouth once daily Active minocycline (Minocin) 50 MG capsule TAKE 1 CAPSULE BY MOUTH DAILY 90 capsule 3 05/01/2025 Active minocycline (Minocin) 50 MG capsule Take 1 (one) capsule by mouth once daily 90 capsule 3 04/30/2025 04/25/20 26 Active brimonidine 0.1 % (Alphagan P) 0.1 % ophthalmic solution Instill 1 (one) drop into both eyes 3 times daily 15 mL 1 04/30/2025 Active Active Problems Problem Noted Date Diagnosed Date Benign essential blepharospasm 05/01/2025 Encounters Date Type Department Care Team Description 05/22/2025 1:00 PM PAEDIATRIC PHYSIOTHERAPIST Procedure visit [facility] Op[facility]mology [address] [place] [phone] Sofía Wilkins MD Benign essential blepharospasm 05/22/2025 Travel 04/30/2025 9:00 AM CDT Procedure visit [facility] - Ophthalmology [address] [place] [phone] Sofía Wilkins MD Benign essential blepharospasm 04/30/2025 Travel 04/29/2025 Refill [facility]hthalmology [address] [place] [phone] Johana Bae MD Refill Request 04/23/2025 11:00 AM CDT Office Visit [facility] Ophthalmology [address] [place] [phone] Rossy Dueñas, CHILD PSYCHOMETRIST-SWINE GENETICS RESEARCHER Benign essential blepharospasm (Primary Dx) 04/23/2025 Travel from Last 3 Months Family History Medical History Relation Name Comments None Known Father None Known Mother Relation Name Status Comments Father Mother Social History Tobacco Use Types Packs/Day Years Used Date Smoking Tobacco: Never Smokeless Tobacco: Never Tobacco Cessation:Counseling Given: Not Answered PHQ-2 Answer Date Recorded PHQ2 TOTAL SCORE 0 09/28/2022 Comments No Sex and Gender Information Value Date Recorded Sex Assigned at Not on file Legal Sex Female 4:06 AM CDT Gender Identity Not on file Sexual Orientation Not on file Travel History Travel Start Travel End [facility] 05/05/2025 05/21/2025 Last Filed Vital Signs Vital Sign Reading Time Taken Comments Blood Pressure 128/84 04/14/2022 1:05 PM CDT Pulse 73 04/14/2022 1:05 PM CDT Temperature 36.4 C (97.5 F) 04/14/2022 1:05 PM CDT Respiratory Rate - - Oxygen Saturation 99% 04/14/2022 1:05 PM CDT Inhaled Oxygen Concentration - - Weight 69.5 kg (153 lb 3.2 oz) 04/14/2022 1:05 P M CDT Height 177.8 cm (5' 10) 04/14/2022 1:05 PM CDT Body Mass Index 21.98 04/14/2022 1:05 PM CDT Plan of Treatment Upcoming Encounters Date Type Department Care Team (Late st Contact Info) Description 08/21/2025 1:45 PM PAEDIATRIC PHYSIOTHERAPIST Procedure visit [facility] [address] [place] [phone] Sofía Wilkins MD [address] [place] [address] [place] [phone] Health Maintenance Due Date Last Done Comments BONE DENSITY TESTING 1950 COLOGUARD (AGES 45-75) - COLON CA SCREENING 1950 COLON MONITORING 1950 COLONOSCOPY - COLON CA SCREENING 1950 CT COLONOGRAPHY - COLON CA SCREENING 1950 Colorectal Cancer Screening 1950 FIT - COLON CA SCREENING 1950 FLEX SIG - COLON CA SCREENING 1950 MAMMOGRAM 1950 HEPATITIS C SCREENING 10/05/1969 DTAP/TDAP/TD VACCINES (1 - Tdap) 10/09/1970 PNEUMOCOCCAL VACCINE 50+ (1 of 1 - PCV) 10/09/2001 ZOSTER VACCINE (1 of 2) 10/09/2001 DEPRESSION SCREENING 07/03/2024 09/28/2022 MEDICARE AWV CALENDAR YEAR 2024 COVID-19 VACCINE ( season) 2025 03/30/2022, 10/01/2021, 04/27/2021, Additional history exists Respiratory Syncytial Virus (RSV) Vaccine Pt: or over 60 yrs (1 - 1-dose 75+ series) 10/09/2026 INFLUENZA VACCINE Completed 03/12/2025, , 04/18/2019, Additional history exists HEPATITIS B VACCINE Aged Out No longe r eligible based on patient's age to complete this topic HIB VACCINE Aged Out No longer eligi ble based on patient's age to complete this topic HPV VACCINE Aged Out No longer eligi ble based on patient's age to complete this topic MENINGOCOCCAL (Group B) VACCINE SHARED DECISION-MAKING Aged Out No longer eligible based on patient's age to complete this topic MENINGOCOCCAL GROUPS A/C/Y/W VACCINE Aged Out No longer eligible based on patient's age to complete this topic Procedures Procedure Name Priority Date/Time Associated Diagnosis Comments DENERVATION FACE MUSCLE BILATERAL Routine 05/01/2025 8:14 PM CDT Benign essential blepharospasm from Last 3 Months Results * DENERVATION FACE MUSCLE BILATERAL (05/01/2025 8:14 PM CDT) Anatomical Region Laterality Modality Head Other Narrative 05/01/2025 8:14 PM CDT Table formatting from the original result was not included. Images from the original result were not included. Botulinum Toxin Operative Note Date of Procedure: 04/30/2025 Patient here for f/u Benign Essential Blepharospasm. The patient is here for botulinum toxin treatment. Alternative treatment options for hemifacial spasm and or blepharospasm were considered, including carbamazepine, clonazepam, phenytoin, gabapentin, and baclofen or cyclobenzaprine. However, due to side-effect burden and variable efficacy, botulinum toxin injection was elected as the safest and most effective treatment for this patient's facial spasm which results in functional impairment and or emotional distress. Clinical effectiveness of injections: n/a - first dose here Site injected: 7.5 units to the right and left frontalis muscle each, 5 units to the right and left heeler machine each, 13 units to the right and left orbicularis oculi each. Last visit: n/a Units: 51 Frequency of injections: first dose History/physical Marah Steward is a 74 year old female here for her first Botox injections. The pt is with her in the exam room today. The pt states her spasms are pretty ongoing. She has given up driving and crossing the street by herself. She feels that her spasms control her life. She states she plans everything around her spasms. She denies any new spasms since her consultation. Pt denies pressure/FOL/floaters. She says when her spasms come it shoot pain through her eyes. She says she will put pressure on her forehead and that seems to help the pain. 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 Sathish Sam M.D. ([place]) - receives Botox treatments Dry eye syndrome of both eyes Gastric ulcer Migraine with aura Past Surgical History: Procedure Laterality Date Cataract Removal Bilateral 06/2021 LASER (YAG) CAPSULOTOMY Bilateral 09/23/2021 Dr. Sathish Sam M.D. ([place]) Family History Problem Relation Name Age of Onset None Known Mother None Known Father Physical Exam: Base Eye Exam Visual Acuity (Snellen - Linear) Right Left Dist sc 20/30 +2 20/25 -1 Additional Notes Jankovic Rating Scale Blepharospasm Severity: 4 - Severe, incapacitating spasm of eyelids and possibly other facial muscles Blepharospasm Frequency: 4 - Functionally blind due to persistent eye closure (blepharospasm) more than 50% of the waking time Roggenkamper Blepharospasm Disability Index Items: Reading - 2 - moderate impairment Driving a vehicle - 3 - severe impairment Watching television - 3 - severe impairment Shopping - 3 - severe impairment Doing everyday activities - 3 - severe impairment Getting about on foot (walking) - 2 - moderate impairment Procedure: Betacaine applied: yes Product Used: Botox Impression: Benign Essential Blepharospasm Surgeon: Sofía Wilkins M.D. Procedure: Botulinum toxin injection for chemical neurolysis, facial muscles After informed consent was obtained, a time out was performed. A total of 51 units of toxin was then administered subcutaneously via a 30-gauge needle to the muscles surrounding both eyes. 7.5 units to the right and left frontalis muscle each, 5 units to the right and left heeler machine each, 13 units to the right and left orbicularis oculi each. At the conclusion, pressure was applied briefly with a gauze dressing. The patient was then given postoperative instructions and released. Amount wasted: 49 units Estimated blood loss: None. F/U 1 mo to reassess treatment plan. Sofía Wilkins MD 05/01/2025 8:12 PM Sofía Wilkins MD OPHTHALMOLOGY SERVICES OR DERABLES Final Result from Last 3 Months Insurance MEDICARE [employer] MEDICARE ADV Care Teams Range Aide Relationship Specialty Start Date End Date Toño Damian MD Internal Medicine of [facility] [address] [place] [address] PCP - General 04/30/25
== END 2025-06-18 12:06 | disposition home or self-care (01) ==
LOC: CHSIMG 12:07
PROVIDERS: PCP Family Medicine; Visit Provider Family Medicine
DX: Z12.31 Encounter for screening mammogram for malignant neoplasm of breast (principal)
CPT/HCPCS: 77063; 77067